=== PATIENT | female | born 1940 | race Caucasian/White ===

== ENCOUNTER 2023-01-28 07:30 | Inpatient (IN) | payer OTHER ==
[2023-01-22 10:47] LABS: BILIRUBIN,URINE NEGATIVE (Neg); CLARITY,URINE CLOUDY (Clear); COLOR,URINE YELLOW (Yellow); GLUCOSE, URINE NEGATIVE (Neg); KETONES,URINE NEGATIVE (Neg); LEUKOCYTE ESTERASE ,URINE LARGE (Neg); NITRITES, URINE POSITIVE (Neg); OCCULT BLOOD,URINE MODERATE (Neg); PROTEIN,URINE 30 mg/dl (Neg); UROBILINOGEN,URINE 0.2 E.U/dL (0.2-1.0)
[2023-01-22 10:48] LABS: UA COLLECTION TYPE NON-SPECIFIED
[2023-01-22 10:49] LABS: EOSINOPHILS # (AUTO) 0.1 X10'3 (0-0.9); PRE OP HEMOGLOBIN 11.4 g/dL (12.0-16.0)
[2023-01-22 10:51] LABS: BASOPHILS # (AUTO) 0.1 X10'3 (0-0.2); EOSINOPHILS % (AUTO) 2.1 % (0-6); LYMPHOCYTES # (AUTO) 1.1 X10'3 (1.1-4.8); MEAN CORPUSCULAR HGB CONC 32.3 g/dL (33.0-36.5); MEAN CORPUSCULAR VOLUME 95.8 FL (78-98); MEAN PLATELET VOLUME 10.3 FL (7.4-10.4); MONOCYTES # (AUTO) 0.6 X10'3 (0-0.9); MONOCYTES % (AUTO) 8.8 % (2-12); NEUTROPHILS # (AUTO) 4.4 X10'3 (1.8-7.7); NEUTROPHILS % (AUTO) 70.1 % (42-75); PRE OP HEMATOCRIT 35.3 % (35.0-45.0); PRE OP PLATELET COUNT 174 X10'3 (140-440); PRE OP WHITE BLOOD COUNT 6.3 10'3 (4.8-10.8); RED BLOOD COUNT 3.68 X10'6 (4.20-5.60); RED CELL DISTRIBUTION WIDTH 15.4 % (11.5-14.5)
[2023-01-22 10:53] LABS: BACTERIA,URINE 4+ /HPF (Neg); MUCUS STRANDS NONE SEEN /LPF (Neg); SQUAMOUS EPITHELIAL CELL,UR NONE SEEN /LPF (FEW); TRANSITIONAL EPI CELLS,URINE FEW /HPF; WBC CLUMPS,URINE MODERATE /HPF (NEGATIVE); WBC,URINE TNTC /HPF (0-4)
[2023-01-22 11:17] LABS: ALBUMIN 3.2 G/DL (3.4-5.0); ALBUMIN/GLOBULIN RATIO 0.8 (1.1-1.5); ALKALINE PHOSPHATASE 136 IU/L (46-116); BLOOD UREA NITROGEN 39 MG/DL (7-18); BUN/CREATININE RATIO 27.9 (10.0-20.0); CALCIUM 9.8 MG/DL (8.5-10.1); CHLORIDE 111 MMOL/L (99-107); PRE OP ALT 15 U/L (30-65); PRE OP ANION GAP 12 (8-16); PRE OP AST 13 U/L (10-37); PRE OP BILIRUB, TOTAL 0.5 MG/DL (0.0-1.0); PRE OP GLUCOSE 191 MG/DL (70-104); PRE OP POTASSIUM 3.7 MMOL/L (3.4-5.1); PRE OP SODIUM 144 MMOL/L (135-145); THYROID STIMULATING HORMONE 6.28 ulU/ml (0.34-4.50); TOTAL CARBON DIOXIDE 21.3 MMOL/L (24-32); eGFR 36 ML/MIN
[2023-01-22 11:48] LABS: PRE OP INR 1.2 INR; PRE OP PROTIME 12.6 SECONDS (9.0-12.0)
[~2023-01-28] VITALS: Ht 175.3 cm; Wt 82.6 kg
[~2023-01-28 07:30] MED LIST: APIX5TAB3 PO; FURO-150 PO; GEMF600T90 CORPAK; HYDR-3965 PO; INSU100I57; IPRA3AMP31 NEB; LEVO125T8 PO; LIDO700A47 TOP; LISI40TA13 PO; METO-395 PO; ONDA4TAB12 PO
[2023-02-04] VITALS (29 sets, daily range): BP systolic 99–136; BP diastolic 44–64; PULSE 45–77; RESP 10–22; TEMP 96.8–98.1; O2SAT 95–100
[2023-02-04] MEDS ORDERED: ringers solution, lacted 1,000 ML IV SCH ×2 (05:00→13:00)
[2023-02-04] MEDS ORDERED: famotidine 20mg tablet PO ONE (05:30)
[2023-02-04] MEDS ORDERED: albuterol 2.5 MG/3 ML nebule NEB ONE (05:30)
[2023-02-04] MEDS ORDERED: ondansetron/PF 4mg/2ml inj IV PRN ×3 (05:30→15:15)
[2023-02-04] MEDS ORDERED: vancomycin 1,500 MG in NS 300ml IV soln IV ONE (05:30)
[2023-02-04] MEDS ORDERED: cefazolin 2gm/D5W 100mL 100 ML IV ONE (05:30)
[2023-02-04] MEDS ORDERED: DOCUMENT DATE & TIME OF BETA-BLOCKER PO ONE (05:30)
[2023-02-04] MEDS ORDERED: protamine sulfate 10mg/ml inj. ONE (08:50)
[2023-02-04] MEDS ORDERED: labetalol 20mg/4ml (5mg/ml) syringe IV PRN ×2 (13:00→15:15)
[2023-02-04] MEDS ORDERED: hydrALAZINE 20mg/ml inj. IV PRN ×2 (13:00→15:15)
[2023-02-04] MEDS ORDERED: morphine 4 MG/ML inj SYRINge IV PRN (13:00)
[2023-02-04] MEDS ORDERED: morphine 2 MG/ML inj. syringe IV PRN (13:00)
[2023-02-04] MEDS ORDERED: LIDOcaine 1% (10mg/ml) 2ml vial ONE (13:36)
[2023-02-04] MEDS ORDERED: iohexol 350 MG/ML 50ML vial IV ONE ×2 (14:05→15:04)
[2023-02-04] MEDS ORDERED: dexamethasone sod phosphate 10mg/ml inj ONE (14:15)
[2023-02-04] MEDS ORDERED: glycopyrrolate 0.2mg/ml inj ONE (14:15)
[2023-02-04] MEDS ORDERED: ondansetron 4mg rapidly disintigrating tab PO PRN (14:15)
[2023-02-04] MEDS ORDERED: LIDOcaine 5% patch TP PRN (14:15)
[2023-02-04] MEDS ORDERED: desflurane 240ml liquid inh. IH ONE (14:15)
[2023-02-04] MEDS ORDERED: neostigmine methylsulfate 1 MG/ML 10ml vial ONE (14:15)
[2023-02-04] MEDS ORDERED: midazolam 1 mg/ML 2ml injection ONE (14:22)
[2023-02-04] MEDS ORDERED: meperidine/PF 50mg/ml syringe ONE (14:22)
[2023-02-04] MEDS ORDERED: LIDOcaine 1%/PF 5ML 10 MG/ML VIAL ONE (14:29)
[2023-02-04] MEDS ORDERED: propofol inj 20 ML IV ONE (14:29)
[2023-02-04] MEDS ORDERED: ondansetron/PF 4mg/2ml inj ONE (14:30)
[2023-02-04] MEDS ORDERED: rocuronium 10mg/ml inj IV ONE (14:30)
[2023-02-04] MEDS ORDERED: heparin 1,000unit/ml 10ml vial 10 ML ONE (14:40)
[2023-02-04] MEDS ORDERED: ePHEDrine 50MG/ML INJ. ONE ×2 (14:46)
[2023-02-04] MEDS ORDERED: DEXTROSE 15 GM of carb/4 tabs (each vial/BOTTLE has 4 tablets) PO PRN ×2 (15:15)
[2023-02-04] MEDS ORDERED: magnesium 4gm in 100ml NS 100 ML IV PRN (15:15)
[2023-02-04] MEDS ORDERED: docusate sod 100mg capsule PO PRN (15:15)
[2023-02-04] MEDS ORDERED: potassium CL 10mEq/100ml bag 100 ML IV PRN (15:15)
[2023-02-04] MEDS ORDERED: pantoprazole 40mg Tablet.DR PO PRN (15:15)
[2023-02-04] MEDS ORDERED: MESSAGE TO PHARMACY PO ONE (15:15)
[2023-02-04] MEDS ORDERED: potassium Cl 40MEQ/1/2NS 520ml 520 ML IV PRN (15:15)
[2023-02-04] MEDS ORDERED: magnesium 2GM in 50ml NS 50 ML IV PRN (15:15)
[2023-02-04] MEDS ORDERED: acetaminophen 325mg tablet PO PRN (15:15)
[2023-02-04] MEDS ORDERED: potassium Cl 40MEQ/270ML bag 250 ML IV PRN (15:15)
[2023-02-04] MEDS ORDERED: potassium Cl 20 mEq SR tablet PO PRN (15:15)
[2023-02-04] MEDS ORDERED: proCHLORperazine 10 MG/2 ml inj IV PRN (15:15)
[2023-02-04] MEDS: normal saline 1000ml 1,000 ML IV SCH (15:15)
[2023-02-04] MEDS ORDERED: glucagon, human recombinant 1mg kit SUBCUT PRN (15:15)
[2023-02-04] MEDS ORDERED: ALPRAZolam 0.25mg tablet PO PRN (15:15)
[2023-02-04] MEDS ORDERED: diphenhydrAMINE 25mg capsule PO PRN (15:15)
[2023-02-04] MEDS ORDERED: dextrose 50%-water 50ml dispensing syringe IV PRN ×2 (15:15)
[2023-02-04] MEDS ORDERED: insulin regular, human U-100 3ml vial - multi-dose SQ SCH (15:15)
[2023-02-04] MEDS ORDERED: potassium Cl 20mEq/100mL bag 100 ML IV PRN (15:15)
--- NOTE | 2023-02-04 15:23 | NUR ---
Received from OR via HOSPITAL BED, accompanied by Anesthesiologist ELVIA and report given by Anesthesiologist. PT PRESENTS ON 6L MASK, VSS. LR RUNNING THRU PIV AND ART LINE ZEROED. RIGHT GROIN DRESSING CDI. PTS IS A/OX4 AND NEUROLOGICALLY INTACT. PUSH PULLS EQUAL. DOPPLER TO BILATERAL PEDAL PULSES. STRONG. NO C/O PAIN/NAUSEA. NO S/S OF DISTRESS.
--- NOTE | 2023-02-04 16:40 | NUR ---
PULLED COCKSTOP IN RIGHT GROIN PER ORDERS. MANUAL PRESSURE HELD D/T BLEEDING.
--- NOTE | 2023-02-04 16:50 | NUR ---
CALL TO DR HAAS: ORDER TO PLACE FEMSTOP: ELECTRIC SCREW DRIVER OPERATOR IN ROOM: PLACED FEMSTOP. PT TOLERATED WELL.
--- NOTE | 2023-02-04 17:15 | NUR ---
NO S/S OF ADDITIONAL BLEEDING WITH FEMSTOP IN PLACE. NO C/O PAIN/NAUSEA. NO S/S OF DISTRESS
--- NOTE | 2023-02-04 18:03 | NUR ---
ART D/C'D PER PROTOCOL. PRESSURE HELD FOR 15 MINUTES. GAUZE AND COBAN APPLIED. NO S/S OF BLEEDING.
--- NOTE | 2023-02-04 19:23 | NUR ---
PT STABLE FOR TRANSFER PER MD ORDERS. NO ADDITIONAL SIGNS OF BLEEDING. FEMSTOP IN PLACE. PT HAS BEEN REPOSITIONED FOR COMFORT. NS RUNNING THRU PIV. COBAN IN PLACE OF D/C'D ART LINE. REPORT GIVEN TO NURSE ROBERT ON TELE FLOOR. ALL QUESTIONS, COMMENTS, AND CONCERNS WERE ANSWERED AT THIS TIME. PATIENT WAS TRANSPORTED ON HOSPITAL BED TO TELE ROOM 3020. ALL PERSONAL BELONGINGS WERE SENT WITH PATIENT. CALL LIGHT WITHIN REACH, BLL, PRIMARY NURSE AWARE OF TRANSFER.
[2023-02-04] MEDS: sod chloride 0.9% 10ml flush syringe IV SCH (19:48)
[2023-02-04] MEDS: gemfibrozil 600mg tablet CORPAK SCH (20:00)
[2023-02-04] MEDS: apixaban 5mg tablet PO SCH (20:00)
[2023-02-04] MEDS: insulin glargine (Lantus) pen - multi-dose SQ SCH (21:00)
[2023-02-04] MEDS: metoprolol succinate 25mg (24-HOUR) SR. Tablet PO SCH (21:00)
[2023-02-05] VITALS (11 sets, daily range): BP systolic 84–97; BP diastolic 31–57; PULSE 45–49; RESP 12–20; TEMP 97–98.1; O2SAT 92–98
[2023-02-05] MEDS: sod chloride 0.9% 10ml flush syringe IV SCH ×3 (00:25→16:00)
[2023-02-05] MEDS: normal saline 1000ml 1,000 ML IV SCH ×2 (02:48→15:48)
[2023-02-05] MEDS: HYDROcodone/acetaminophen 5mg/325mg tablet PO PRN ×2 (05:47→16:48)
--- NOTE | 2023-02-05 06:10 | NUR ---
Problems reprioritized. Patient report given, questions answered & plan of care reviewed with GRETTA Guzman.
--- NOTE | 2023-02-05 06:46 | NUR ---
Patient in room PCU 3020. I have received report from Tamela GLYNN and had the opportunity to ask questions and assume patient care.
[2023-02-05 07:51] LABS: BASOPHILS % (AUTO) 0.1 % (0-1); EOSINOPHILS % (AUTO) 0 % (0-6); HEMATOCRIT 34.7 % (35.0-45.0); HEMOGLOBIN 10.8 g/dl (12.0-16.0); INR 1.1 INR; LYMPHOCYTES # (AUTO) 0.8 X10'3 (1.1-4.8); LYMPHOCYTES % (AUTO) 6.7 % (21-51); MEAN CORPUSCULAR HEMOGLOBIN 30.5 PG (27.0-31.0); MEAN CORPUSCULAR HGB CONC 31.3 g/dL (33.0-36.5); MEAN CORPUSCULAR VOLUME 97.3 FL (78-98); MEAN PLATELET VOLUME 10.7 FL (7.4-10.4); MONOCYTES # (AUTO) 0.9 X10'3 (0-0.9); MONOCYTES % (AUTO) 6.8 % (2-12); NEUTROPHILS # (AUTO) 10.9 X10'3 (1.8-7.7); NEUTROPHILS % (AUTO) 86.4 % (42-75); PLATELET COUNT 192 X10'3 (140-440); PROTHROMBIN TIME 11.4 SECONDS (9.0-12.0); RED BLOOD COUNT 3.56 X10'6 (4.20-5.60); RED CELL DISTRIBUTION WIDTH 15.6 % (11.5-14.5); WHITE BLOOD COUNT 12.6 X10'3 (4.5-11.0)
[2023-02-05] MEDS: lisinopril 20mg tablet PO SCH (08:00)
[2023-02-05] MEDS ORDERED: apixaban 5mg tablet PO SCH (08:00)
[2023-02-05 08:15] LABS: ALANINE AMINOTRANSFERASE 14 U/L (12-78); ALBUMIN 2.9 G/DL (3.4-5.0); ALBUMIN/GLOBULIN RATIO 0.8 (1.1-1.5); ALKALINE PHOSPHATASE 112 IU/L (46-116); ANION GAP 13 (8-16); ASPARTATE AMINO TRANSFERASE 13 U/L (10-37); BILIRUBIN,TOTAL 0.2 MG/DL (0.1-1.0); BLOOD UREA NITROGEN 68 MG/DL (7-18); CALCIUM 8.9 MG/DL (8.5-10.1); CHLORIDE 108 MMOL/L (99-107); GLUCOSE 234 MG/DL (70-104); POTASSIUM 5.6 MMOL/L (3.5-5.1); PRO BRAIN NATRIURETIC PEPTIDE 1936 PG/ML (0-450); SODIUM 136 MMOL/L (135-145); TOTAL CARBON DIOXIDE 15.5 MMOL/L (24-32); TOTAL PROTEIN 6.4 G/DL (6.4-8.2); eCRCL 23 ML/MIN; eGFR 24 ML/MIN
[2023-02-05] MEDS: apixaban 5mg tablet PO SCH (08:31)
[2023-02-05] MEDS: furosemide 20MG tablet PO SCH (08:33)
[2023-02-05] MEDS: levoTHYROXINE 125mcg tablet PO SCH (08:33)
[2023-02-05] MEDS: metoprolol succinate 25mg (24-HOUR) SR. Tablet PO SCH ×2 (08:33→21:00)
[2023-02-05] MEDS: gemfibrozil 600mg tablet CORPAK SCH ×2 (08:35→19:50)
[2023-02-05 08:57] LABS: HEMOGLOBIN A1C 7.4 % (4.5-6.2)
--- NOTE | 2023-02-05 11:30 | NUR ---
Pt has a low BP of 83/39 with automatic cuff, i rechecked with manual and got a reading of 85/40. Dr Martin Farooq has been notified and she is receiving a 1L bolus of fluids now.
--- NOTE | 2023-02-05 15:30 | NUR ---
DISCHARGE CANCELLED FOR TODAY PER DR. NICOLE. PATIENT WILL BE GETTING ANOTHER ECHOCARDIOGRAM FOR TOMORROW.
--- NOTE | 2023-02-05 15:43 | NUR ---
ORDER TO STOP ELIQUIS PUT IN PER DR. NICOLE.
--- NOTE | 2023-02-05 18:49 | NUR ---
Problems reprioritized. Patient report given, questions answered & plan of care reviewed with Yash GLYNN.
[2023-02-05] MEDS: insulin Lispro (HumaLOG) vial - multi-dose SQ SCH (19:26)
[2023-02-05] MEDS: insulin glargine (Lantus) pen - multi-dose SQ SCH (21:47)
[2023-02-06] VITALS (9 sets, daily range): BP systolic 76–105; BP diastolic 40–59; PULSE 43–54; RESP 15–24; TEMP 96.9–97.8; O2SAT 90–98
[2023-02-06] MEDS: normal saline 1000ml 1,000 ML IV SCH ×2 (02:12→11:42)
--- NOTE | 2023-02-06 06:21 | NUR ---
Patient report given to Blu GLYNN questions answered & plan of care reviewed with .
--- NOTE | 2023-02-06 06:29 | NUR ---
Patient in room PCU 3020. I have received report from Yash HERNANDEZ and had the opportunity to ask questions and assume patient care.
--- NOTE | 2023-02-06 07:30 | NUR ---
This RN agrees w/the EXCHANGE ADMINISTRATOR's physical assessment of this patinet.
[2023-02-06] MEDS: gemfibrozil 600mg tablet CORPAK SCH ×2 (07:50→19:24)
[2023-02-06] MEDS: levoTHYROXINE 125mcg tablet PO SCH (07:50)
[2023-02-06] MEDS: furosemide 20MG tablet PO SCH (08:00)
[2023-02-06] MEDS: lisinopril 20mg tablet PO SCH (08:00)
[2023-02-06] MEDS: metoprolol succinate 25mg (24-HOUR) SR. Tablet PO SCH ×2 (08:00→21:00)
[2023-02-06] MEDS: sod chloride 0.9% 10ml flush syringe IV SCH ×3 (08:26→16:04)
--- NOTE | 2023-02-06 09:27 | NUR ---
Per EMR pt with T2DM, well controlled for geriatric age with A1c 7.4%. DM education not warranted at this time. Will continue to follow. Addendum: 02/06/23 at [address] Amended: Links added.
--- NOTE | 2023-02-06 09:43 | NUR ---
PERSONALIZED LIVING MANAGER REPORTED THAT THERE WERE ST CHANGES, WE DID A 12-LEAD EKG AND IT SHOWED ACUTE KS. GRETTA BULLARD, THE PRIMARY NURSE, TOOK THE 12 LEAD DOWN TO THE ED AND ONE OF THE ED PHYSICIANS SIGNED THE [address] NICOLE WAS CALLED AND TOLD THAT THERE WERE ST CHANGES THAT HAPPENED DURING THE NIGHT AND THAT WE PROCEEDED TO GET A 12 LEAD DONE TODAY THAT SHOWED ACUTE KS. HE STATED THAT HE WAS ON HIS WAY IN. Addendum: 02/06/23 at 1001 by Sridevi Flowers RN NO 12 LEAD EKG WAS DONE DURING GEOGRAPHIC INFORMATION SYSTEMS MANAGER TO SHOW THE CHANGES.
--- NOTE | 2023-02-06 10:28 | NUR ---
ORDERS FOR CBC, CMP AND TROPONIN PUT IN PER DR. NICOLE.
[2023-02-06] MEDS ORDERED: fentaNYL/PF 50MCG/1 ML 2ML syringe ONE (11:24)
[2023-02-06] MEDS ORDERED: midazolam 1 mg/ML 2ml injection ONE (11:24)
[2023-02-06] MEDS ORDERED: heparin 1,000unit/ml 10ml vial 10 ML ONE (11:24)
[2023-02-06] MEDS ORDERED: iohexol 350MG/ML 100ml bottle IV ONE (11:24)
[2023-02-06] MEDS ORDERED: LIDOcaine 1% (10mg/ml) 2ml vial ONE (11:46)
[2023-02-06] MEDS ORDERED: verapamil 2.5 mg/ml inj IV ONE (11:46)
[2023-02-06] MEDS ORDERED: aspirin 81mg tab.chew ONE ×2 (11:55→11:58)
[2023-02-06] MEDS ORDERED: clopidogrel 300mg tablet ONE (11:55)
[2023-02-06] MEDS ORDERED: nitroGLYCERIN 500mcg/5mL D5W 0 ML IV ONE (11:56)
[2023-02-06 14:08] LABS: BASOPHILS % (AUTO) 0.4 % (0-1); EOSINOPHILS # (AUTO) 0.1 X10'3 (0-0.9); EOSINOPHILS % (AUTO) 0.9 % (0-6); HEMATOCRIT 34.2 % (35.0-45.0); HEMOGLOBIN 10.9 g/dl (12.0-16.0); LYMPHOCYTES % (AUTO) 9.6 % (21-51); MEAN CORPUSCULAR HEMOGLOBIN 31.5 PG (27.0-31.0); MEAN CORPUSCULAR HGB CONC 31.8 g/dL (33.0-36.5); MEAN CORPUSCULAR VOLUME 98.9 FL (78-98); MONOCYTES # (AUTO) 0.2 X10'3 (0-0.9); MONOCYTES % (AUTO) 2.4 % (2-12); NEUTROPHILS # (AUTO) 8.9 X10'3 (1.8-7.7); NEUTROPHILS % (AUTO) 86.7 % (42-75); PLATELET COUNT 162 X10'3 (140-440); RED BLOOD COUNT 3.45 X10'6 (4.20-5.60); WHITE BLOOD COUNT 10.3 X10'3 (4.5-11.0)
[2023-02-06 14:17] LABS: ALANINE AMINOTRANSFERASE 10 U/L (12-78); ALBUMIN 2.8 G/DL (3.4-5.0); ALBUMIN/GLOBULIN RATIO 0.8 (1.1-1.5); ALKALINE PHOSPHATASE 99 IU/L (46-116); ANION GAP 10 (8-16); ASPARTATE AMINO TRANSFERASE 17 U/L (10-37); BILIRUBIN,TOTAL 0.2 MG/DL (0.1-1.0); BLOOD UREA NITROGEN 83 MG/DL (7-18); BUN/CREATININE RATIO 26.3 (10.0-20.0); CALCIUM 8.7 MG/DL (8.5-10.1); CHLORIDE 107 MMOL/L (99-107); CREATININE 3.16 MG/DL (0.40-0.90); GLUCOSE 136 MG/DL (70-104); POTASSIUM 5.7 MMOL/L (3.5-5.1); SODIUM 133 MMOL/L (135-145); TOTAL CARBON DIOXIDE 15.9 MMOL/L (24-32); TOTAL PROTEIN 6.4 G/DL (6.4-8.2); eCRCL 15 ML/MIN; eGFR 14 ML/MIN
[2023-02-06] MEDS ORDERED: HYDROcodone/acetaminophen 5mg/325mg tablet PO PRN (14:20)
[2023-02-06] MEDS ORDERED: HYDROcodone/acetaminophen 10/325mg tab PO PRN (14:20)
--- NOTE | 2023-02-06 14:35 | NUR ---
Pt had a lab value of Trop - 106, Dr. Farooq called and notified.
--- NOTE | 2023-02-06 18:59 | NUR ---
Problems reprioritized. Patient report given, questions answered & plan of care reviewed with Kaitlynn GLYNN.
[2023-02-06] MEDS: insulin glargine (Lantus) pen - multi-dose SQ SCH (21:00)
--- NOTE | 2023-02-06 21:00 | NUR ---
pt was not treated today for blood sugars d/t being NPO or in procedure so will check 2100 blood sugar and have pt re-meet protocol. will continue to monitor.
[2023-02-07] VITALS (9 sets, daily range): BP systolic 88–155; BP diastolic 36–67; PULSE 50–60; RESP 9–26; TEMP 97.5–98.8; O2SAT 95–98
[2023-02-07] MEDS: sod chloride 0.9% 10ml flush syringe IV SCH ×3 (00:03→16:00)
--- NOTE | 2023-02-07 06:13 | NUR ---
Problems reprioritized. Patient report given, questions answered & plan of care reviewed with Blu GLYNN.
--- NOTE | 2023-02-07 06:44 | NUR ---
Patient in room PCU 3020. I have received report from Kaitlynn GLYNN and had the opportunity to ask questions and assume patient care.
[2023-02-07 07:04] LABS: ALBUMIN 2.5 G/DL (3.4-5.0); ANION GAP 17 (8-16); BLOOD UREA NITROGEN 97 MG/DL (7-18); BUN/CREATININE RATIO 26.1 (10.0-20.0); CALCIUM 8.7 MG/DL (8.5-10.1); CHLORIDE 106 MMOL/L (99-107); CREATININE 3.72 MG/DL (0.40-0.90); GLUCOSE 143 MG/DL (70-104); POTASSIUM 5.4 MMOL/L (3.5-5.1); SODIUM 133 MMOL/L (135-145); eCRCL 13 ML/MIN; eGFR 12 ML/MIN
[2023-02-07 07:07] LABS: TOTAL CARBON DIOXIDE 10.1 MMOL/L (24-32)
[2023-02-07] MEDS: clopidogrel 75mg tablet PO SCH (07:23)
[2023-02-07] MEDS: levoTHYROXINE 125mcg tablet PO SCH (07:23)
[2023-02-07] MEDS: furosemide 20MG tablet PO SCH (07:23)
[2023-02-07] MEDS: aspirin 81mg, enteric-coated 1 TAB TABLET.DR PO SCH (07:23)
[2023-02-07] MEDS: gemfibrozil 600mg tablet CORPAK SCH (07:23)
[2023-02-07] MEDS: metoprolol succinate 25mg (24-HOUR) SR. Tablet PO SCH (07:24)
[2023-02-07] MEDS: lisinopril 20mg tablet PO SCH (07:24)
[2023-02-07 07:31] LABS: BASOPHILS % (AUTO) 0.4 % (0-1); EOSINOPHILS % (AUTO) 0.4 % (0-6); HEMATOCRIT 30.1 % (35.0-45.0); HEMOGLOBIN 9.8 g/dl (12.0-16.0); LYMPHOCYTES # (AUTO) 1.1 X10'3 (1.1-4.8); LYMPHOCYTES % (AUTO) 10.7 % (21-51); MEAN CORPUSCULAR HEMOGLOBIN 31.6 PG (27.0-31.0); MEAN CORPUSCULAR HGB CONC 32.6 g/dL (33.0-36.5); MEAN CORPUSCULAR VOLUME 96.8 FL (78-98); MEAN PLATELET VOLUME 10.9 FL (7.4-10.4); MONOCYTES # (AUTO) 1.2 X10'3 (0-0.9); MONOCYTES % (AUTO) 11.5 % (2-12); NEUTROPHILS # (AUTO) 8.2 X10'3 (1.8-7.7); PLATELET COUNT 161 X10'3 (140-440); RED BLOOD COUNT 3.11 X10'6 (4.20-5.60); RED CELL DISTRIBUTION WIDTH 15.7 % (11.5-14.5); WHITE BLOOD COUNT 10.7 X10'3 (4.5-11.0)
--- NOTE | 2023-02-07 07:39 | NUR ---
Pt had critical lab value CO2 - 10.1. Dr Farooq called and notified.
[2023-02-07 09:10] LABS: ABG BASE EXCESS -15.1 mmol/L (-2.0-2.0); ABG HCO3 10.5 mmol/L (22.0-26.0); ABG OXYGEN SATURATION 95.8 % (94-97); ABG PCO2 (T) 24.1 mmHg (32.0-45.0); ABG PH (T) 7.255 (7.350-7.450); ABG PO2 (T) 81.9 mmHg (75.0-100.0); ALLEN'S TEST Yes; FCOHb 0.3 % (0.0-3.9); FHHb 4.2 % (0.0-5.0); FMetHb 0.3 % (0.0-1.5); FO2Hb 95.2 % (94-97); MODE ROOM AIR; PATIENT TEMPERATURE 36.6; TOTAL HEMOGLOBIN 10.1 G/dl (12.0-16.0)
[2023-02-07] MEDS: sodium bicarbonate (8.4%) inj. 150 MEQ in dextrose 5%-water 1,000 ML IV SCH (11:25)
[2023-02-07 12:32] LABS: TOTAL PROTEIN,URINE RANDOM 55.8 MG/DL
[2023-02-07 12:33] LABS: BILIRUBIN,URINE NEGATIVE (Neg); CLARITY,URINE SLIGHTLY CLOUDY (Clear); COLOR,URINE YELLOW (Yellow); GLUCOSE, URINE NEGATIVE (Neg); KETONES,URINE NEGATIVE (Neg); LEUKOCYTE ESTERASE ,URINE NEGATIVE (Neg); NITRITES, URINE NEGATIVE (Neg); OCCULT BLOOD,URINE SMALL (Neg); PH,URINE 5.5 (4.8-8.0); PROTEIN,URINE TRACE mg/dl (Neg); UROBILINOGEN,URINE 0.2 E.U/dL (0.2-1.0)
[2023-02-07 12:54] LABS: UA COLLECTION TYPE CLN CATCH MIDSTREAM
[2023-02-07 12:58] LABS: MUCUS STRANDS FEW /LPF (Neg); SQUAMOUS EPITHELIAL CELL,UR FEW /LPF (FEW)
[2023-02-07 12:59] LABS: BACTERIA,URINE FEW /HPF (Neg); RBC,URINE 0-2 /HPF (0-2); TRANSITIONAL EPI CELLS,URINE FEW /HPF; WBC,URINE 0-4 /HPF (0-4)
[2023-02-07 13:40] LABS: UA EOSINOPHILS NO EOS /HPF
--- NOTE | 2023-02-07 18:27 | NUR ---
Problems reprioritized. Patient report given, questions answered & plan of care reviewed with Rhiannon GLYNN.
[2023-02-07] MEDS: insulin Lispro (HumaLOG) vial - multi-dose SQ SCH (21:30)
[2023-02-07] MEDS: insulin glargine (Lantus) pen - multi-dose SQ SCH (21:32)
[2023-02-08] VITALS (12 sets, daily range): BP systolic 130–148; BP diastolic 55–70; PULSE 54–121; RESP 16–27; TEMP 97.6–99; O2SAT 94–98
[2023-02-08] MEDS: sodium bicarbonate (8.4%) inj. 150 MEQ in dextrose 5%-water 1,000 ML IV SCH ×2 (01:12→10:25)
[2023-02-08] MEDS: sod chloride 0.9% 10ml flush syringe IV SCH ×3 (01:13→16:00)
[2023-02-08 01:59] LABS: BASOPHILS % (AUTO) 0.3 % (0-1); EOSINOPHILS # (AUTO) 0.1 X10'3 (0-0.9); EOSINOPHILS % (AUTO) 0.8 % (0-6); HEMATOCRIT 26.5 % (35.0-45.0); HEMOGLOBIN 8.8 g/dl (12.0-16.0); LYMPHOCYTES % (AUTO) 11.8 % (21-51); MEAN CORPUSCULAR HEMOGLOBIN 31.6 PG (27.0-31.0); MEAN CORPUSCULAR HGB CONC 33.2 g/dL (33.0-36.5); MEAN CORPUSCULAR VOLUME 95.4 FL (78-98); MEAN PLATELET VOLUME 10.5 FL (7.4-10.4); MONOCYTES # (AUTO) 0.9 X10'3 (0-0.9); MONOCYTES % (AUTO) 11.2 % (2-12); NEUTROPHILS # (AUTO) 6.4 X10'3 (1.8-7.7); NEUTROPHILS % (AUTO) 75.9 % (42-75); PLATELET COUNT 162 X10'3 (140-440); RED BLOOD COUNT 2.78 X10'6 (4.20-5.60); RED CELL DISTRIBUTION WIDTH 15.3 % (11.5-14.5); WHITE BLOOD COUNT 8.4 X10'3 (4.5-11.0)
[2023-02-08 02:03] LABS: ALANINE AMINOTRANSFERASE 8 U/L (12-78); ALBUMIN 2.4 G/DL (3.4-5.0); ALBUMIN/GLOBULIN RATIO 0.6 (1.1-1.5); ALKALINE PHOSPHATASE 87 IU/L (46-116); ANION GAP 12 (8-16); ASPARTATE AMINO TRANSFERASE 13 U/L (10-37); BILIRUBIN,TOTAL 0.2 MG/DL (0.1-1.0); BLOOD UREA NITROGEN 97 MG/DL (7-18); BUN/CREATININE RATIO 26.1 (10.0-20.0); CHLORIDE 107 MMOL/L (99-107); CREATININE 3.72 MG/DL (0.40-0.90); GLUCOSE 122 MG/DL (70-104); MAGNESIUM 1.8 MG/DL (1.5-2.4); PHOSPHORUS 6.1 MG/DL (2.3-4.5); POTASSIUM 5.2 MMOL/L (3.5-5.1); SODIUM 135 MMOL/L (135-145); TOTAL CARBON DIOXIDE 15.7 MMOL/L (24-32); TOTAL PROTEIN 6.2 G/DL (6.4-8.2); eCRCL 13 ML/MIN; eGFR 12 ML/MIN
--- NOTE | 2023-02-08 06:11 | NUR ---
Problems reprioritized. Patient report given, questions answered & plan of care reviewed with Bul GLYNN. Pt stable at shift change.
--- NOTE | 2023-02-08 06:22 | NUR ---
Patient in room PCU 3020. I have received report from Rhiannon GLYNN and had the opportunity to ask questions and assume patient care.
[2023-02-08] MEDS: clopidogrel 75mg tablet PO SCH (07:38)
[2023-02-08] MEDS: aspirin 81mg, enteric-coated 1 TAB TABLET.DR PO SCH (07:38)
[2023-02-08] MEDS: levoTHYROXINE 125mcg tablet PO SCH (07:39)
[2023-02-08] MEDS: atorvastatin 20mg tablet PO SCH (07:39)
[2023-02-08] MEDS ORDERED: metoprolol succinate 25mg (24-HOUR) SR. Tablet PO ONE (10:30)
[2023-02-08] MEDS ORDERED: ipratropium/albuterol 3ml nebule NEB PRN (12:30)
[2023-02-08] MEDS: ipratropium/albuterol 3ml nebule NEB SCH ×2 (14:35→20:18)
--- NOTE | 2023-02-08 17:27 | NUR ---
Pt refused 1500 vitals.
--- NOTE | 2023-02-08 18:45 | NUR ---
Patient in room PCU 3020. I have received report from Rhiannon GLYNN and had the opportunity to ask questions and assume patient care.
[2023-02-08] MEDS: insulin glargine (Lantus) pen - multi-dose SQ SCH (21:20)
[2023-02-08] MEDS: insulin Lispro (HumaLOG) vial - multi-dose SQ SCH (21:22)
[2023-02-09] VITALS (16 sets, daily range): BP systolic 117–133; BP diastolic 53–79; PULSE 76–109; RESP 14–21; TEMP 97.4–98; O2SAT 94–99
[2023-02-09] MEDS: ipratropium/albuterol 3ml nebule NEB SCH ×4 (02:01→19:38)
[2023-02-09] MEDS: sodium bicarbonate (8.4%) inj. 150 MEQ in dextrose 5%-water 1,000 ML IV SCH ×3 (04:03→19:52)
[2023-02-09] MEDS: levoTHYROXINE 125mcg tablet PO SCH (07:00)
[2023-02-09 07:11] LABS: BASOPHILS % (AUTO) 0.6 % (0-1); EOSINOPHILS # (AUTO) 0.1 X10'3 (0-0.9); EOSINOPHILS % (AUTO) 1.4 % (0-6); HEMATOCRIT 29.1 % (35.0-45.0); HEMOGLOBIN 9.4 g/dl (12.0-16.0); LYMPHOCYTES # (AUTO) 0.8 X10'3 (1.1-4.8); LYMPHOCYTES % (AUTO) 11.9 % (21-51); MEAN CORPUSCULAR HEMOGLOBIN 30.7 PG (27.0-31.0); MEAN CORPUSCULAR HGB CONC 32.4 g/dL (33.0-36.5); MEAN CORPUSCULAR VOLUME 94.7 FL (78-98); MEAN PLATELET VOLUME 10.3 FL (7.4-10.4); MONOCYTES # (AUTO) 0.8 X10'3 (0-0.9); MONOCYTES % (AUTO) 11.2 % (2-12); NEUTROPHILS # (AUTO) 5.1 X10'3 (1.8-7.7); NEUTROPHILS % (AUTO) 74.9 % (42-75); PLATELET COUNT 182 X10'3 (140-440); RED BLOOD COUNT 3.08 X10'6 (4.20-5.60); RED CELL DISTRIBUTION WIDTH 15.4 % (11.5-14.5); WHITE BLOOD COUNT 6.9 X10'3 (4.5-11.0)
[2023-02-09 07:33] LABS: ALANINE AMINOTRANSFERASE 6 U/L (12-78); ALBUMIN 2.2 G/DL (3.4-5.0); ALBUMIN/GLOBULIN RATIO 0.6 (1.1-1.5); ALKALINE PHOSPHATASE 76 IU/L (46-116); ANION GAP 14 (8-16); ASPARTATE AMINO TRANSFERASE 10 U/L (10-37); BILIRUBIN,TOTAL 0.2 MG/DL (0.1-1.0); BLOOD UREA NITROGEN 79 MG/DL (7-18); BUN/CREATININE RATIO 26.9 (10.0-20.0); CALCIUM 8.8 MG/DL (8.5-10.1); CHLORIDE 107 MMOL/L (99-107); CREATININE 2.94 MG/DL (0.40-0.90); GLUCOSE 257 MG/DL (70-104); MAGNESIUM 1.7 MG/DL (1.5-2.4); PHOSPHORUS 4.4 MG/DL (2.3-4.5); POTASSIUM 4.3 MMOL/L (3.5-5.1); SODIUM 142 MMOL/L (135-145); TOTAL CARBON DIOXIDE 21.4 MMOL/L (24-32); TOTAL PROTEIN 5.8 G/DL (6.4-8.2); eCRCL 16 ML/MIN; eGFR 15 ML/MIN
[2023-02-09] MEDS: sod chloride 0.9% 10ml flush syringe IV SCH ×4 (08:00→23:26)
[2023-02-09] MEDS ORDERED: metoprolol succinate 25mg (24-HOUR) SR. Tablet PO SCH (08:00)
[2023-02-09] MEDS: clopidogrel 75mg tablet PO SCH (09:11)
[2023-02-09] MEDS: atorvastatin 20mg tablet PO SCH (09:11)
[2023-02-09] MEDS: aspirin 81mg, enteric-coated 1 TAB TABLET.DR PO SCH (09:11)
[2023-02-09] MEDS: insulin Lispro (HumaLOG) vial - multi-dose SQ SCH ×2 (09:16→14:42)
--- NOTE | 2023-02-09 13:40 | NUR ---
PATIENT IS A DIABETIC AND HAS NOT BEEN GETTING A DIABETIC DIET. BLOOD SUGARS HAVE BEEN ABOVE 250. NEW DIET ORDER PLACED.
--- NOTE | 2023-02-09 16:11 | NUR ---
AGREE WITH FIRE PROTECTION EQUIPMENT TECHNICIAN AM ASSESSMENT
--- NOTE | 2023-02-09 16:18 | NUR ---
Initial: Pt admit DX NIK on CKD, CAD s/p cardiac cath 02/06, hyperkalemia, afib, metabolic acidosis, and T2DM A1C 7.4% per EMR. A1C appropriate per age. Pt PO ~51% avg renal/carb controlled meals past 4 days partially meeting estimated needs. PO has improved to ~91% past 4 meals and if continues would meet needs. Noted receiving Na-bicarb/D5W at 100ml/hr providing 408 kcals/day. Pt seen by RD at bedside; pt reports dislikes hospital food though won't provide specific preferences and is forcing herself to eat. Pt reports had Tea Bar salmon bowl brought from outside; RD verified leftovers saved for pt in nourishment room fridge half of bowl and most of protein eaten. RD encouraged pt PO intake meals, foods from outside if that's her preference, and to make food preferences known to meet nutrition needs. Pt does request vanilla ice cream WS tonight-dietary notified. Per GRAPE PRUNER, likely discharge tomorrow so ONS not appropriate as pt most likely won't received prior to discharge. LBM 02/08 per EMR. Will monitor for further PO trends and nutrition intervention needs. Rec: 1. continue carb controlled/renal diet; liberalize to regular diet if recent PO trends don't persist given age 2. honor pt food preferences as able; foods from outside if pt preference 3. routine bowel care 4. weekly wt Addendum: 02/09/23 at [address] Amended: Links added.
--- NOTE | 2023-02-09 16:54 | NUR ---
PATIENT REFUSED BLOOD SUGAR CHECK FOR DINNER.
--- NOTE | 2023-02-09 18:15 | NUR ---
Patient in room PCU 3020. I have received report from Verona HERNANDEZ and had the opportunity to ask questions and assume patient care.
[2023-02-09] MEDS: insulin glargine (Lantus) pen - multi-dose SQ SCH (21:09)
[2023-02-10] VITALS (9 sets, daily range): BP systolic 115–141; BP diastolic 57–78; PULSE 85–106; RESP 16–20; TEMP 97.3–97.6; O2SAT 94–98
[2023-02-10] MEDS: ipratropium/albuterol 3ml nebule NEB SCH ×3 (02:34→13:46)
--- NOTE | 2023-02-10 06:37 | NUR ---
Problems reprioritized. Patient report given, questions answered & plan of care reviewed with Yovanny HERNANDEZ.
--- NOTE | 2023-02-10 06:43 | NUR ---
Patient in room PCU 3020. I have received report from Melquiades RN & Umm RN and had the opportunity to ask questions and assume patient care.
[2023-02-10 07:28] LABS: BASOPHILS # (AUTO) 0.1 X10'3 (0-0.2); EOSINOPHILS # (AUTO) 0.2 X10'3 (0-0.9); EOSINOPHILS % (AUTO) 2.6 % (0-6); HEMOGLOBIN 9.2 g/dl (12.0-16.0); LYMPHOCYTES % (AUTO) 16.9 % (21-51); MEAN CORPUSCULAR HEMOGLOBIN 31.3 PG (27.0-31.0); MEAN PLATELET VOLUME 9.8 FL (7.4-10.4); MONOCYTES # (AUTO) 0.7 X10'3 (0-0.9); MONOCYTES % (AUTO) 11.4 % (2-12); NEUTROPHILS # (AUTO) 4.2 X10'3 (1.8-7.7); NEUTROPHILS % (AUTO) 68.1 % (42-75); PLATELET COUNT 203 X10'3 (140-440); RED BLOOD COUNT 2.95 X10'6 (4.20-5.60); RED CELL DISTRIBUTION WIDTH 15.3 % (11.5-14.5); WHITE BLOOD COUNT 6.2 X10'3 (4.5-11.0)
[2023-02-10] MEDS: aspirin 81mg, enteric-coated 1 TAB TABLET.DR PO SCH (07:45)
[2023-02-10] MEDS: clopidogrel 75mg tablet PO SCH (07:46)
[2023-02-10] MEDS: atorvastatin 20mg tablet PO SCH (07:46)
[2023-02-10] MEDS: levoTHYROXINE 125mcg tablet PO SCH (07:49)
[2023-02-10] MEDS: sod chloride 0.9% 10ml flush syringe IV SCH (07:55)
[2023-02-10 07:59] LABS: ALBUMIN 2.3 G/DL (3.4-5.0); ALBUMIN/GLOBULIN RATIO 0.6 (1.1-1.5); ALKALINE PHOSPHATASE 74 IU/L (46-116); ANION GAP 9 (8-16); ASPARTATE AMINO TRANSFERASE 20 U/L (10-37); BILIRUBIN,TOTAL 0.2 MG/DL (0.1-1.0); BLOOD UREA NITROGEN 73 MG/DL (7-18); BUN/CREATININE RATIO 27.8 (10.0-20.0); CALCIUM 8.7 MG/DL (8.5-10.1); CHLORIDE 106 MMOL/L (99-107); CREATININE 2.63 MG/DL (0.40-0.90); GLUCOSE 221 MG/DL (70-104); MAGNESIUM 1.7 MG/DL (1.5-2.4); SODIUM 142 MMOL/L (135-145); TOTAL CARBON DIOXIDE 26.7 MMOL/L (24-32); TOTAL PROTEIN 6.1 G/DL (6.4-8.2); eCRCL 18 ML/MIN; eGFR 17 ML/MIN
[2023-02-10] MEDS ORDERED: metoprolol succinate 25mg (24-HOUR) SR. Tablet PO SCH (08:00)
[2023-02-10] MEDS ORDERED: normal saline 1000ml 1,000 ML IV SCH (08:05)
[2023-02-10 08:06] LABS: ALANINE AMINOTRANSFERASE 6 U/L (12-78)
[2023-02-10] MEDS: insulin Lispro (HumaLOG) vial - multi-dose SQ SCH ×2 (09:22→14:07)
--- NOTE | 2023-02-10 15:32 | NUR ---
Patient stable for transfer. IV discontinued prior to d/c. Attempted to contact [facility] to give report but there was no answer when calling the facility phone. Will attempt to call report later. [facility] and transported in [facility] to [facility]. D/C @ 8079.
== END 2023-02-10 15:30 | DRG 273 ==
LOC: EDSTATUS 09:00 → PAS IN 02-04 08:49 → PCU 3S 02-04 19:25
PROVIDERS: ADMIT Student in an Organized Health Care Education/Training Program; ATTEND Student in an Organized Health Care Education/Training Program
PROC: 03HY32Z Insertion of Monitoring Device into Upper Artery, Percutaneous Approach (ICD-10-PCS; 2023-02-04)
PROC: B24BZZ4 Ultrasonography of Heart with Aorta, Transesophageal (ICD-10-PCS; 2023-02-04)
PROC: 02L73DK Occlusion of Left Atrial Appendage with Intraluminal Device, Percutaneous Approach (ICD-10-PCS; principal; 2023-02-04 14:15)
PROC: 027034Z Dilation of Coronary Artery, One Artery with Drug-eluting Intraluminal Device, Percutaneous Approach (ICD-10-PCS; 2023-02-06)
PROC: 4A023N7 Measurement of Cardiac Sampling and Pressure, Left Heart, Percutaneous Approach (ICD-10-PCS; 2023-02-06)
PROC: B2111ZZ Fluoroscopy of Multiple Coronary Arteries using Low Osmolar Contrast (ICD-10-PCS; 2023-02-06)
DX: I48.0 Paroxysmal atrial fibrillation (principal); Z00.6 Encounter for examination for normal comparison and control in clinical research program; I21.4 Non-ST elevation (NSTEMI) myocardial infarction; N17.0 Acute kidney failure with tubular necrosis; I31.39 Other pericardial effusion (noninflammatory); E87.20 Acidosis, unspecified; N17.9 Acute kidney failure, unspecified; E03.9 Hypothyroidism, unspecified; I34.0 Nonrheumatic mitral (valve) insufficiency; E11.22 Type 2 diabetes mellitus with diabetic chronic kidney disease; E87.5 Hyperkalemia; I95.9 Hypotension, unspecified; E78.5 Hyperlipidemia, unspecified; I25.10 Atherosclerotic heart disease of native coronary artery without angina pectoris; N18.30 Chronic kidney disease, stage 3 unspecified; I12.9 Hypertensive chronic kidney disease with stage 1 through stage 4 chronic kidney disease, or unspecified chronic kidney disease; Z86.73 Personal history of transient ischemic attack (TIA), and cerebral infarction without residual deficits; Z88.6 Allergy status to analgesic agent
CPT/HCPCS: 33340; 93308; 93312; 93325; 93458; C9600; 36415; 36600; 71045; 71046; 76770; 76937; 80048; 80053; 81001; 82570; 82803; 82948; 83036; 83735; 83880; 84100; 84156; 84300; 84443; 84484; 85018; 85025; 85347; 85610; 85730; 86885; 86900; 86901; 86920; 87077; 87081; 87088; 87186; 87207; 93005; 94640; 94760; 97116; 97161; 97530; 99152; 99153; A4618; A6258; A6449; C1725; C1751; C1760; C1769; C1874; C1889; C1893; C1894; G0378; J0690; J1100; J1644; J1815; J2175; J2250; J2270; J2405; J2704; J2710; J2720; J3010; J3370; J3490; J7030; J7040; J7070; J7120; Q9967

== ENCOUNTER 2023-02-11 13:58 | Emergency (ER) | payer OTHER ==
[~2023-02-11] VITALS: Ht 175.3 cm; Wt 83.0 kg
[2023-02-11 14:03] VITALS: TEMP 97.6
[2023-02-11 15:08] LABS: BASOPHILS # (AUTO) 0.1 X10'3 (0-0.2); EOSINOPHILS # (AUTO) 0.2 X10'3 (0-0.9); EOSINOPHILS % (AUTO) 3.3 % (0-6); HEMATOCRIT 29.9 % (35.0-45.0); HEMOGLOBIN 9.5 g/dl (12.0-16.0); LYMPHOCYTES # (AUTO) 1.3 X10'3 (1.1-4.8); LYMPHOCYTES % (AUTO) 18.6 % (21-51); MEAN CORPUSCULAR HEMOGLOBIN 30.7 PG (27.0-31.0); MEAN CORPUSCULAR HGB CONC 31.8 g/dL (33.0-36.5); MEAN CORPUSCULAR VOLUME 96.7 FL (78-98); MEAN PLATELET VOLUME 9.5 FL (7.4-10.4); MONOCYTES # (AUTO) 0.7 X10'3 (0-0.9); MONOCYTES % (AUTO) 10.6 % (2-12); NEUTROPHILS # (AUTO) 4.6 X10'3 (1.8-7.7); NEUTROPHILS % (AUTO) 66.5 % (42-75); PLATELET COUNT 245 X10'3 (140-440); RED BLOOD COUNT 3.09 X10'6 (4.20-5.60); RED CELL DISTRIBUTION WIDTH 15.6 % (11.5-14.5); WHITE BLOOD COUNT 6.9 X10'3 (4.5-11.0)
[2023-02-11 15:28] LABS: ALANINE AMINOTRANSFERASE 10 U/L (12-78); ALBUMIN 2.6 G/DL (3.4-5.0); ALBUMIN/GLOBULIN RATIO 0.7 (1.1-1.5); ALKALINE PHOSPHATASE 82 IU/L (46-116); ANION GAP 8 (8-16); ASPARTATE AMINO TRANSFERASE 17 U/L (10-37); BILIRUBIN,TOTAL 0.3 MG/DL (0.1-1.0); BLOOD UREA NITROGEN 65 MG/DL (7-18); BUN/CREATININE RATIO 27.4 (10.0-20.0); CALCIUM 9.1 MG/DL (8.5-10.1); CHLORIDE 105 MMOL/L (99-107); CREATININE 2.37 MG/DL (0.40-0.90); GLUCOSE 243 MG/DL (70-104); POTASSIUM 4.3 MMOL/L (3.5-5.1); SODIUM 138 MMOL/L (135-145); TOTAL CARBON DIOXIDE 24.8 MMOL/L (24-32); TOTAL PROTEIN 6.6 G/DL (6.4-8.2); eCRCL 20 ML/MIN; eGFR 20 ML/MIN
[2023-02-11 15:37] LABS: PRO BRAIN NATRIURETIC PEPTIDE 11096 PG/ML (0-450)
[2023-02-11] MEDS ORDERED: diltiazem 5mg/ml 5ml inj. IV ONE (15:45)
[2023-02-11 16:50] LABS: MAGNESIUM 1.7 MG/DL (1.5-2.4)
--- NOTE | 2023-02-11 17:41 | NUR ---
TRANSPORTATION ARRANGED- ETA 30-45 MINS
[2023-02-11 17:43] VITALS: BP 120/76; PULSE 76; RESP 19; O2SAT 100
--- NOTE | 2023-02-11 17:44 | NUR ---
This RN attempted to give report to nurses station at [facility]. No answer. Will attempt to give report at a later time.
== END 2023-02-11 18:00 | disposition home or self-care (01) ==
LOC: ER 14:00
DX: I48.91 Unspecified atrial fibrillation (principal); Z88.6 Allergy status to analgesic agent; Z88.8 Allergy status to other drugs, medicaments and biological substances; Z79.899 Other long term (current) drug therapy
CPT/HCPCS: 36415; 71045; 80053; 83735; 83880; 84484; 85025; 93005; 96374; 99285; J3490

== ENCOUNTER 2023-02-24 15:02 | Inpatient (IN) | payer OTHER ==
[~2023-02-24] VITALS: Ht 175.3 cm; Wt 93.0 kg
[~2023-02-24 15:02] MED LIST changes: -INSU100I57; +INSU100I57 SQ
[2023-02-24 15:42] LABS: BASOPHILS # (AUTO) 0.1 X10'3 (0-0.2); BASOPHILS % (AUTO) 0.9 % (0-1); EOSINOPHILS % (AUTO) 0.2 % (0-6); HEMATOCRIT 36.2 % (35.0-45.0); HEMOGLOBIN 10.9 g/dl (12.0-16.0); LYMPHOCYTES # (AUTO) 0.8 X10'3 (1.1-4.8); LYMPHOCYTES % (AUTO) 9.5 % (21-51); MEAN CORPUSCULAR HEMOGLOBIN 30.4 PG (27.0-31.0); MEAN CORPUSCULAR HGB CONC 30.1 g/dL (33.0-36.5); MEAN CORPUSCULAR VOLUME 100.8 FL (78-98); MEAN PLATELET VOLUME 9.3 FL (7.4-10.4); MONOCYTES # (AUTO) 0.8 X10'3 (0-0.9); MONOCYTES % (AUTO) 9.6 % (2-12); NEUTROPHILS # (AUTO) 6.7 X10'3 (1.8-7.7); NEUTROPHILS % (AUTO) 79.8 % (42-75); PLATELET COUNT 474 X10'3 (140-440); RED BLOOD COUNT 3.59 X10'6 (4.20-5.60); RED CELL DISTRIBUTION WIDTH 16.1 % (11.5-14.5); WHITE BLOOD COUNT 8.4 X10'3 (4.5-11.0)
--- NOTE | 2023-02-24 15:58 | NUR ---
pt placed on 10l simple mask, RT and MD at bedside speaking with pt. and daughter
[2023-02-24 16:19] VITALS: PULSE 111; RESP 21; O2SAT 100
[2023-02-24] MEDS ORDERED: normal saline 1000ml 1,000 ML IV ONE (16:20)
[2023-02-24 16:29] VITALS: PULSE 111; RESP 20; O2SAT 99
--- NOTE | 2023-02-24 17:20 | NUR ---
PT ON BIPAP AND TOLERATING WELL. DAUGHTER AT BEDSIDE.
[2023-02-24 17:28] LABS: ALANINE AMINOTRANSFERASE 246 U/L (12-78); ALBUMIN 2.5 G/DL (3.4-5.0); ALBUMIN/GLOBULIN RATIO 0.7 (1.1-1.5); ALKALINE PHOSPHATASE 142 IU/L (46-116); ANION GAP 17 (8-16); ASPARTATE AMINO TRANSFERASE 431 U/L (10-37); BILIRUBIN,TOTAL 1.4 MG/DL (0.1-1.0); BLOOD UREA NITROGEN 118 MG/DL (7-18); BUN/CREATININE RATIO 27.8 (10.0-20.0); CALCIUM 9.1 MG/DL (8.5-10.1); CHLORIDE 104 MMOL/L (99-107); CREATININE 4.24 MG/DL (0.40-0.90); GLUCOSE 179 MG/DL (70-104); MAGNESIUM 1.5 MG/DL (1.5-2.4); PRO BRAIN NATRIURETIC PEPTIDE 8809 PG/ML (0-450); SODIUM 138 MMOL/L (135-145); TOTAL PROTEIN 6.3 G/DL (6.4-8.2); eCRCL 11 ML/MIN; eGFR 10 ML/MIN
[2023-02-24 17:30] LABS: POTASSIUM 7.6 MMOL/L (3.5-5.1)
[2023-02-24] MEDS ORDERED: calcium gluconate inj. 2 GM in normal saline 100ml IV soln 100 ML IV STA (17:43)
[2023-02-24] MEDS ORDERED: insulin regular, human 10 units/0.1 ml syringe IV ONE (17:45)
[2023-02-24] MEDS ORDERED: albuterol 2.5 MG/3 ML nebule CONTNEB PRN (17:45)
[2023-02-24] MEDS ORDERED: dextrose 50%-water 50ml dispensing syringe IV ONE (17:45)
[2023-02-24] MEDS: CALCIUM GLUC 1gm/50ml NACL,iso 50 ML IV SCH ×2 (18:02→19:35)
--- NOTE | 2023-02-24 18:17 | NUR ---
PT OFF OF BIPAP AND ON 4L NC. PT TOLERATING WELL. PT IS SATTING 97% ON [address] HERNANDEZ AT BEDSIDE
[2023-02-24] MEDS ORDERED: magnesium 4gm in 100ml NS 100 ML IV PRN (18:40)
[2023-02-24] MEDS ORDERED: potassium Cl 40MEQ/1/2NS 520ml 520 ML IV PRN (18:40)
[2023-02-24] MEDS ORDERED: potassium Cl 20 mEq SR tablet PO PRN ×2 (18:40)
[2023-02-24] MEDS ORDERED: mag hydrox/Alum hydrox/simeth 30ml oral suspension PO PRN ×2 (18:40→19:15)
[2023-02-24] MEDS ORDERED: magnesium 2GM in 50ml NS 50 ML IV PRN (18:40)
[2023-02-24] MEDS ORDERED: ondansetron/PF 4mg/2ml inj IV PRN ×2 (18:40→19:15)
[2023-02-24] MEDS ORDERED: magnesium hydroxide 30ml (MOM) UD suspension PO PRN ×2 (18:40→19:15)
[2023-02-24] MEDS ORDERED: sodium bicarbonate (8.4%) 1 mEq/ml syringe IV ONE (18:50)
[2023-02-24] MEDS ORDERED: sodium polystyrene sulfonate 15gm/60ml oral suspension PO ONE (18:50)
--- NOTE | 2023-02-24 19:00 | NUR ---
PT REFUSING ADDITIONAL IV PLACEMENT AND ALL FURTHER POKES.
--- NOTE | 2023-02-24 19:00 | NUR ---
PLACED EJ ON R SIDE. PER MD SIMENTAL ACCESS. LINE FLUSHED
[2023-02-24] MEDS ORDERED: LIDOCAINE 1%/EPI 1:100,000 inj. 10 ML multi-dose vial IJ ONE (19:05)
[2023-02-24] MEDS ORDERED: acetaminophen 325mg tablet PO PRN (19:15)
[2023-02-24] MEDS ORDERED: calcium gluconate 0.46mEq/mL (100mg/mL) inj IV ONE (19:15)
[2023-02-24] MEDS ORDERED: PERFLUTREN PROTEIN-A MICROSPHR (Optison) 0.22 MG/ML 3ML VIAL IV ONE (19:15)
[2023-02-24] MEDS ORDERED: metoprolol tartrate 50mg tablet PO ONE (19:25)
[2023-02-24] MEDS ORDERED: dextrose 50%-water 50ml dispensing syringe IV PRN ×2 (19:25)
[2023-02-24] MEDS ORDERED: MESSAGE TO PHARMACY PO ONE (19:25)
[2023-02-24] MEDS ORDERED: DEXTROSE 15 GM of carb/4 tabs (each vial/BOTTLE has 4 tablets) PO PRN ×2 (19:25)
[2023-02-24] MEDS ORDERED: glucagon, human recombinant 1mg kit SUBCUT PRN (19:25)
[2023-02-24] MEDS: SODIUM BICARB 150mEq/D5W 1L 1,000 ML IV SCH (19:26)
[2023-02-24 19:40] LABS: ALBUMIN 2.3 G/DL (3.4-5.0); ANION GAP 17 (8-16); BLOOD UREA NITROGEN 125 MG/DL (7-18); BUN/CREATININE RATIO 30.8 (10.0-20.0); CALCIUM 9.2 MG/DL (8.5-10.1); CHLORIDE 106 MMOL/L (99-107); CREATININE 4.06 MG/DL (0.40-0.90); GLUCOSE 202 MG/DL (70-104); SODIUM 141 MMOL/L (135-145); TOTAL CARBON DIOXIDE 18.3 MMOL/L (24-32); eCRCL 12 ML/MIN; eGFR 11 ML/MIN
--- NOTE | 2023-02-24 19:48 | NUR ---
PER MD ANGELA DESIR CALCIUM GLUCONATE. RUN BICARB DRIP.
--- NOTE | 2023-02-24 19:59 | NUR ---
PT HAS PROLAPSED BLADDER. MD AWARE. PT DENIES PAIN
[2023-02-24] MEDS: docusate sod 100mg capsule PO SCH ×2 (20:00)
[2023-02-24] MEDS: sodium polystyrene sulfonate 15gm/60ml oral suspension PO SCH (20:00)
[2023-02-24] MEDS: K and/or MAG REPLACEMENT MC SCH (20:00)
[2023-02-24] MEDS: heparin, porcine 5000 units/ml vial SQ SCH (20:13)
[2023-02-24 20:42] VITALS: PULSE 87; RESP 18; O2SAT 97
[2023-02-24] MEDS ORDERED: ASPI81TA52 PO (23:44)
[2023-02-24] MEDS ORDERED: CLOP75TA34 PO (23:44)
[2023-02-24] MEDS ORDERED: PANT-47 PO (23:56)
[2023-02-24] MEDS ORDERED: DOCU100C40 PO (23:56)
[2023-02-24] MEDS ORDERED: INSU100I75 SQ (23:56)
[2023-02-24] MEDS ORDERED: ATOR40TA71 PO (23:56)
[2023-02-24 23:57] VITALS: PULSE 104; RESP 18; O2SAT 97
[2023-02-25] VITALS (17 sets, daily range): BP systolic 84–128; BP diastolic 36–55; PULSE 76–112; RESP 14–24; TEMP 97.2–98.1; O2SAT 91–99
[2023-02-25] MEDS ORDERED: NA P133E4 RC (00:06)
[2023-02-25] MEDS ORDERED: MAGN400O6 PO (00:06)
[2023-02-25] MEDS ORDERED: BISA10SU60 RC (00:06)
[2023-02-25] MEDS ORDERED: acetaminophen 325mg tablet PO ONE (01:10)
[2023-02-25] MEDS: SODIUM BICARB 150mEq/D5W 1L 1,000 ML IV SCH ×2 (01:28→08:10)
[2023-02-25] MEDS: sodium polystyrene sulfonate 15gm/60ml oral suspension PO SCH ×4 (01:56→20:00)
[2023-02-25 02:22] LABS: ALBUMIN 2.2 G/DL (3.4-5.0); ANION GAP 19 (8-16); BLOOD UREA NITROGEN 123 MG/DL (7-18); BUN/CREATININE RATIO 28.8 (10.0-20.0); CALCIUM 8.6 MG/DL (8.5-10.1); CHLORIDE 105 MMOL/L (99-107); CREATININE 4.27 MG/DL (0.40-0.90); GLUCOSE 219 MG/DL (70-104); MAGNESIUM 1.3 MG/DL (1.5-2.4); POTASSIUM 5.8 MMOL/L (3.5-5.1); SODIUM 142 MMOL/L (135-145); eCRCL 11 ML/MIN; eGFR 10 ML/MIN
[2023-02-25] MEDS ORDERED: sodium polystyrene sulfonate 15gm/60ml oral suspension PO ONE (02:35)
--- NOTE | 2023-02-25 02:58 | NUR ---
pt laying on left side. BP cuff on right arm giving false reading. PT refusing bp cuff to be moved.
--- NOTE | 2023-02-25 07:30 | NUR ---
PT ARRIVED TO THE TELEMETRY FLOOR VIA GURNEY, WITH THE ED NURSE STATING THEY ARE GIVING A BEDSIDE REPORT. I WAS UNAVAILABLE AT THE TIME, SO THE CLINICAL CATECHIST, LUCY, TOOK BEDSIDE REPORT. BP IS SOFT AND PATIENT IS ALERT, TIRED AND COLD. SHE WANTS TO LAY DOWN. NUCLEAR MEDICINE CALLED FOR PT TO GO TO VQ SCAN, HOWEVER PATIENT IS UNABLE TO LIE FLAT AND IS ALSO REFUSING. PT THEN ASKED "WHAT IS THAT PLACE CALLED WHERE YOU GO TO , HOSPICE! THATS WHAT I WANT RIGHT NOW." EXPRESSED EMPATHY FOR PATIENTS CURRENT SITUATION/CONDITION OF HER HEALTH. SHE TOLD ME SHE IS VERY SOUND IN HER DECISION ABOUT HOSPIC. MD CAME IN AT THAT TIME AND I RELAYED WHAT THE PATIENT HAD JUST STATED. MD RESIDENT STATED SHE WOULD CONSULT WITH ASSIGNED HOSPITALIST. DR HERNANDEZ ALSO CAME AND ASSESSED THE PATIENT. ORDERS RECEIVED AND NOTED
--- NOTE | 2023-02-25 07:33 | NUR ---
Reprort given at bedside per house worker to charge nurse Sridevi who stated "I know everything about this patient." Per charge nurse, "no further questions."
[2023-02-25] MEDS: K and/or MAG REPLACEMENT MC SCH ×2 (08:00→20:00)
[2023-02-25] MEDS: docusate sod 100mg capsule PO SCH ×4 (08:00→20:00)
[2023-02-25] MEDS: metoprolol succinate 25mg (24-HOUR) SR. Tablet PO SCH (08:00)
[2023-02-25] MEDS: heparin, porcine 5000 units/ml vial SQ SCH ×2 (08:00→22:32)
[2023-02-25] MEDS: ipratropium/albuterol 3ml nebule NEB SCH ×4 (08:11→20:51)
--- NOTE | 2023-02-25 08:50 | NUR ---
ABG attemped twice unsuccessfully, pt states "that's enough!". She wants to eat her breakfast, will attempt ABG again shortly.
[2023-02-25] MEDS ORDERED: sodium bicarbonate (8.4%) 1 mEq/ml syringe IV ONE (10:05)
--- NOTE | 2023-02-25 10:10 | NUR ---
ORDERS FOR 2 AMPS OF SODIUM BICARB IV, RENAL ULTRASOUND, AND GA PUT IN PER DR. HERNANDEZ. Addendum: 02/25/23 at 1026 by Sridevi Flowers RN ORDER TO D/C NM LUNG PUT IN PER DR. HERNANDEZ.
[2023-02-25 10:39] LABS: ALBUMIN 2.5 G/DL (3.4-5.0); ANION GAP 18 (8-16); BLOOD UREA NITROGEN 127 MG/DL (7-18); CALCIUM 8.5 MG/DL (8.5-10.1); CHLORIDE 104 MMOL/L (99-107); CHOL/HDL RATIO 2.4 (0.00-4.99); CHOLESTEROL 104 MG/DL (0-200); CREATININE 4.54 MG/DL (0.40-0.90); GLUCOSE 235 MG/DL (70-104); HDL CHOLESTEROL 43 MG/DL (35-60); LDL CHOLESTEROL 53 MG/DL (50-100); POTASSIUM 5.1 MMOL/L (3.5-5.1); SODIUM 142 MMOL/L (135-145); TOTAL CARBON DIOXIDE 20.1 MMOL/L (24-32); TRIGLYCERIDES 53 MG/DL (20-135); eCRCL 10 ML/MIN; eGFR 9 ML/MIN
[2023-02-25 10:41] LABS: THYROID STIMULATING HORMONE 4.86 ulU/ml (0.34-4.50)
--- NOTE | 2023-02-25 11:45 | NUR ---
PT REFUSING GA CATHETER. ATTEMPTS X1 TO PLACE GA AND WAS SUCCESSFUL WITH URINE RETURN. HOWEVER, PATIENT STARTED SCREAMING THAT THE PAIN WAS UNBREARABLE AND I HAD TO REMOVE TO CATHETER PER THE PATIENT. WILL TRY TO REATTEMPT THERE IS A DOCTOR ORDERED GA
--- NOTE | 2023-02-25 13:08 | NUR ---
CRITICAL VALUE OF 5.6 LACTIC ACID CALLED BY LAB - SENT DR HERNANDEZ A MESSAGE REGARDING RESULTS - NO NOW ORDERS OF NOW. PT IS GOING TO BE TRANSFERRING TO THE ICU WITHIN THE NEXT HOUR PER DR HERNANDEZ
[2023-02-25] MEDS: aspirin 81mg, enteric-coated 1 TAB TABLET.DR PO SCH (13:46)
[2023-02-25] MEDS: pantoprazole 40mg Tablet.DR PO SCH (13:46)
[2023-02-25] MEDS: levoTHYROXINE 125mcg tablet PO SCH (13:46)
[2023-02-25] MEDS: clopidogrel 75mg tablet PO SCH (13:46)
--- NOTE | 2023-02-25 14:07 | NUR ---
ORDER FOR 1L NORMAL SALINE BOLUS PUT IN PER DR. CLEMONS
[2023-02-25] MEDS ORDERED: normal saline 1000ml 1,000 ML IV ONE (14:10)
[2023-02-25] MEDS: sodium bicarbonate (8.4%) inj. 150 MEQ in dextrose 5%-water 1,000 ML IV SCH ×2 (14:50→22:28)
[2023-02-25 15:02] LABS: BFSOURCE LEFT PLEURAL FLD; PLEURAL FLUID PH 7.501 (7.63-7.65)
[2023-02-25 15:16] LABS: GLUCOSE,BODY FLUID 303 MG/DL; LDH,BODY FLUID 165 U/L
[2023-02-25 15:37] LABS: BFSOURCE LEFT PLEURAL FLD; LYMPHOCYTES,BODY FLUID 44 %; MONOCYTES,BODY FLUID 11 %; NEUTROPHILS,BODY FLUID 45 %
[2023-02-25 15:38] LABS: BF MESOTHELIAL CELLS FEW; BF RBC COUNT 205 /CU MM; BF WBC COUNT 230 /CU MM (0-1000); BFAPPEAR HAZY; BFCOLOR YELLOW; BFVOLUME 9 ML
[2023-02-25] MEDS: magnesium Cl slow-release 64mg tablet PO PRN (16:04)
--- NOTE | 2023-02-25 16:06 | NUR ---
charting reviewed with Student RN Addendum: 02/25/23 at 1606 by Aniket Mayers INSTRUCTOR GRETTA Amended: Links added.
[2023-02-25 16:07] LABS: TOTAL PROTEIN,BODY FLUID < 2.0 G/DL
[2023-02-25 16:46] LABS: ALBUMIN 2.4 G/DL (3.4-5.0); ANION GAP 19 (8-16); BLOOD UREA NITROGEN 127 MG/DL (7-18); BUN/CREATININE RATIO 27.5 (10.0-20.0); CALCIUM 7.9 MG/DL (8.5-10.1); CHLORIDE 102 MMOL/L (99-107); CREATININE 4.62 MG/DL (0.40-0.90); GLUCOSE 363 MG/DL (70-104); POTASSIUM 5.3 MMOL/L (3.5-5.1); SODIUM 141 MMOL/L (135-145); eCRCL 10 ML/MIN; eGFR 9 ML/MIN
--- NOTE | 2023-02-25 17:18 | NUR ---
DR GUTIERREZ AT BEDSIDE TO ASSESS PATIENT. ORDERS WRITTEN FOR A PBNP.
--- NOTE | 2023-02-25 17:40 | NUR ---
MD RESIDENT CALLED AND WAS ASKING WHY PATIENT WAS NOT IN THE ICU YET. AFTER DISCUSSING WITH HOT MOLDER ON TELE, I FOUND OUT ICU MD DECIDED SHE WAS STABLE ENOUGH FOR PCU. NO NEW ORDERS RECEIVED AT THIS TIME
[2023-02-25] MEDS ORDERED: acetaminophen 325mg tablet PO PRN (17:45)
--- NOTE | 2023-02-25 17:57 | NUR ---
PATIENT VERBALIZED PAIN LEVEL OF 7. NURSE LEXY INFORMED. ORDER PLACED FOR ACETAMINOPHEN 650 FOR PAIN LEVEL 1-3 BY NURSE. INFORMED PATIENT PAIN LEVEL HIGHER THAN 3. PER NURSE OK TO GIVE
--- NOTE | 2023-02-25 18:08 | NUR ---
NOTIFIED MD OF PATIENT WITH UNCONTROLLED PAIN. ADMINISTERED TYLENOL BUT IT HASNT HELPED MUCH. NO NEW ORDERS AT THIS TIME, MD WAS GOING TO REVIEW CHART AND PLACE AN ORDER
[2023-02-25] MEDS ORDERED: HYDROcodone/acetaminophen 10/325mg tab PO PRN (18:25)
[2023-02-25] MEDS ORDERED: morphine 2 MG/ML inj. syringe IV PRN (18:25)
--- NOTE | 2023-02-25 19:23 | NUR ---
PAGED DR. CLEMONS FOR ROOM 3020, [place]. Good evening doc, Sorry to bother you. This pt has a strong wishes for Hospice care and was upset that nobody is listening to her. I talked resident; she wanted me to inform you again. Thank you Umm [facility] [id number]
[2023-02-25] MEDS ORDERED: insulin Lispro (HumaLOG) vial - multi-dose SQ SCH (19:30)
[2023-02-25] MEDS ORDERED: dextrose 50%-water 50ml dispensing syringe IV PRN ×2 (19:30)
[2023-02-25] MEDS ORDERED: glucagon, human recombinant 1mg kit SUBCUT PRN (19:30)
[2023-02-25] MEDS ORDERED: DEXTROSE 15 GM of carb/4 tabs (each vial/BOTTLE has 4 tablets) PO PRN ×2 (19:30)
--- NOTE | 2023-02-25 19:30 | NUR ---
DR. CLEMONS CALLED BACK AND MENTIONED THAT HE HAD AN EXTENSIVE DISCUSSION WITH PT'S DAUGHTER AND SHE WAS NOT ABLE TO MAKE UP MIND AND DR. CLEMONS WILL ADDRESS PT'S WISHES OF HOSPICE CARE FIRST THING IN THE MORNING Addendum: 02/25/23 at 2020 by Karey Diaz RN AND GAVE VERBAL ORDERS FOR MORPHINE 2MG Q2H PRN TO CONTROL THE PAIN
[2023-02-25] MEDS: insulin glargine (Lantus) pen - multi-dose SQ SCH (21:00)
--- NOTE | 2023-02-25 22:30 | NUR ---
Pt refusing lab draws and some PO medications like Kayexalate stating shes tired of being bothered, doesn't want be poked anymore or doesn't want to take a medication that is going to make her have more bowel movements. Educated pt on usage of current medications and importance of labs to help reassess lab values to better provide care and treatment of condition, pt verbalizes understanding and still wants to be left alone at this time, aware, Doctor discussing care options with pt in the AM, pt discussed talk of potential "hospice" care moving forward and interested in talk with doctor. VSS, respirations even and unlabored, even rise and fall of chest, denies pain when asked. Call light and fluids within reach.
[2023-02-25] MEDS: atorvastatin 20mg tablet PO SCH (22:33)
[2023-02-25] MEDS: insulin Lispro (HumaLOG) vial - multi-dose SQ SCH (23:02)
[2023-02-26] VITALS (13 sets, daily range): BP systolic 78–108; BP diastolic 38–50; PULSE 87–125; RESP 15–20; TEMP 96.8–97.9; O2SAT 94–98
[2023-02-26] MEDS: sodium polystyrene sulfonate 15gm/60ml oral suspension PO SCH ×4 (02:00→20:00)
--- NOTE | 2023-02-26 06:30 | NUR ---
Patient in room PCU 3020. I have received report from GRETTA Becerra and had the opportunity to ask questions and assume patient care.
[2023-02-26] MEDS: sodium bicarbonate (8.4%) inj. 150 MEQ in dextrose 5%-water 1,000 ML IV SCH (07:00)
[2023-02-26] MEDS: levoTHYROXINE 125mcg tablet PO SCH (07:19)
[2023-02-26] MEDS: pantoprazole 40mg Tablet.DR PO SCH (07:19)
[2023-02-26] MEDS: morphine 2 MG/ML inj. syringe IV PRN ×3 (07:20→20:03)
[2023-02-26] MEDS: ipratropium/albuterol 3ml nebule NEB SCH ×4 (07:32→20:25)
[2023-02-26] MEDS: docusate sod 100mg capsule PO SCH ×4 (08:00→20:00)
[2023-02-26] MEDS: metoprolol succinate 25mg (24-HOUR) SR. Tablet PO SCH ×2 (08:00→09:08)
[2023-02-26] MEDS: heparin, porcine 5000 units/ml vial SQ SCH ×2 (08:00→19:49)
[2023-02-26] MEDS: K and/or MAG REPLACEMENT MC SCH ×2 (08:00→20:00)
[2023-02-26] MEDS: aspirin 81mg, enteric-coated 1 TAB TABLET.DR PO SCH (09:09)
[2023-02-26] MEDS: clopidogrel 75mg tablet PO SCH (09:09)
--- NOTE | 2023-02-26 09:22 | NUR ---
Noted pt with a low Damion of 12. Per EMR pt with no edema or open wounds. Per EMR pt with T2DM, well controlled for geriatric age with A1c 8.0%. DM education not warranted at this time. Will continue to follow. Addendum: 02/26/23 at [address] Amended: Links added.
[2023-02-26 10:11] LABS: ALBUMIN 2.1 G/DL (3.4-5.0); ANION GAP 13 (8-16); BLOOD UREA NITROGEN 126 MG/DL (7-18); BUN/CREATININE RATIO 27.9 (10.0-20.0); CALCIUM 7.4 MG/DL (8.5-10.1); CHLORIDE 100 MMOL/L (99-107); CREATININE 4.51 MG/DL (0.40-0.90); FREE T4 (FREE THYROXINE) 1.18 NG/DL (0.73-1.40); GLUCOSE 280 MG/DL (70-104); MAGNESIUM 1.3 MG/DL (1.5-2.4); POTASSIUM 4.2 MMOL/L (3.5-5.1); SODIUM 138 MMOL/L (135-145); THYROID STIMULATING HORMONE 7.15 ulU/ml (0.34-4.50); TOTAL CARBON DIOXIDE 25.4 MMOL/L (24-32); eCRCL 10 ML/MIN; eGFR 9 ML/MIN
--- NOTE | 2023-02-26 12:05 | NUR ---
PRESSURE ULCER EDUCATION: DEFINITION: A pressure ulcer is an area of skin that breaks down when you stay in one position too long. The constant pressure against the skin reduces the blood flow to that area and the affected tissue dies. CAUSES: "Being bedridden or in a wheelchair "Fragile skin "Having a chronic condition, such as diabetes or vascular disease "Inability to move certain parts of your body without assistance "Older age "Incontinence of urine or stool SYMPTOMS: "A reddened area that DOES NOT turn white when pressed on - this can be the beginning of a pressure ulcer "A blister, deep sore or a crater - these can be advanced pressure ulcers FIRST AID: "Relieve the pressure on this area "Keep the area clean and dry "Call your primary doctor if you see any of the above symptoms "DO NOT massage the area "DO NOT use a donut shaped or ring shaped pillow- these actually interfere with the blood flow and cause complications PREVENTION: "Check for pressure ulcers everyday "Change position at least every two hours to relieve pressure "Use items that help relieve pressure- pillows, sheepskin, foam padding, and powders. "Keep skin clean and dry "Eat healthy well balanced meals "Exercise daily IF YOU SEE ANY OF THESE SYMPTOMS WHILE IN THE HOSPITAL - TELL YOUR NURSE IMMEDIATELY. IF YOU SEE ANY OF THESE SYMPTOMS WHILE AT HOME OR HAVE ANY QUESTIONS OR CONCERNS ABOUT PRESSURE ULCERS - CALL YOUR PRIMARY DOCTOR IMMEDIATELY. Addendum: 02/26/23 at 1205 by Noah Caldwell RN Amended: Links added.
[2023-02-26] MEDS: normal saline 1000ml 1,000 ML IV SCH ×2 (13:50→21:58)
[2023-02-26] MEDS ORDERED: normal saline 1000ml 1,000 ML IV ONE (13:50)
[2023-02-26] MEDS: insulin Lispro (HumaLOG) vial - multi-dose SQ SCH ×2 (14:48→19:35)
[2023-02-26 15:07] LABS: ALBUMIN 2.1 G/DL (3.4-5.0); ANION GAP 13 (8-16); BLOOD UREA NITROGEN 125 MG/DL (7-18); BUN/CREATININE RATIO 26.8 (10.0-20.0); CALCIUM 7.2 MG/DL (8.5-10.1); CHLORIDE 99 MMOL/L (99-107); CREATININE 4.66 MG/DL (0.40-0.90); GLUCOSE 296 MG/DL (70-104); POTASSIUM 4.2 MMOL/L (3.5-5.1); SODIUM 137 MMOL/L (135-145); TOTAL CARBON DIOXIDE 25.4 MMOL/L (24-32); eCRCL 10 ML/MIN; eGFR 9 ML/MIN
--- NOTE | 2023-02-26 18:23 | NUR ---
1700 SVN TRIAGED. THERAPIST NOT AVAILABLE
[2023-02-26] MEDS: NUT.TX.IMP.RENAL FXN,LAC-REDUC (Nepro) 237 ML VANILLA PO SCH (18:37)
--- NOTE | 2023-02-26 18:40 | NUR ---
Problems reprioritized. Patient report given, questions answered & plan of care reviewed with GRETTA Becerra.
[2023-02-26] MEDS: atorvastatin 20mg tablet PO SCH (19:51)
[2023-02-26] MEDS: magnesium Cl slow-release 64mg tablet PO PRN (20:02)
[2023-02-26] MEDS: insulin glargine (Lantus) pen - multi-dose SQ SCH (21:41)
[2023-02-27] VITALS (11 sets, daily range): BP systolic 71–130; BP diastolic 31–74; PULSE 68–134; RESP 14–20; TEMP 97.2–98.4; O2SAT 94–97
[2023-02-27] MEDS: sodium polystyrene sulfonate 15gm/60ml oral suspension PO SCH ×3 (02:00→13:55)
[2023-02-27] MEDS: normal saline 1000ml 1,000 ML IV SCH ×2 (05:53→13:55)
[2023-02-27] MEDS: morphine 2 MG/ML inj. syringe IV PRN ×2 (05:58→21:21)
[2023-02-27 07:52] LABS: MAGNESIUM 1.3 MG/DL (1.5-2.4)
[2023-02-27] MEDS: NUT.TX.IMP.RENAL FXN,LAC-REDUC (Nepro) 237 ML VANILLA PO SCH ×3 (08:00→18:03)
[2023-02-27] MEDS: metoprolol succinate 25mg (24-HOUR) SR. Tablet PO SCH (08:00)
[2023-02-27] MEDS: K and/or MAG REPLACEMENT MC SCH (08:00)
[2023-02-27] MEDS: docusate sod 100mg capsule PO SCH ×2 (08:00→09:52)
[2023-02-27] MEDS: ipratropium/albuterol 3ml nebule NEB SCH ×2 (08:55→12:18)
[2023-02-27] MEDS: levoTHYROXINE 125mcg tablet PO SCH (09:51)
[2023-02-27] MEDS: pantoprazole 40mg Tablet.DR PO SCH (09:52)
[2023-02-27] MEDS: aspirin 81mg, enteric-coated 1 TAB TABLET.DR PO SCH (09:54)
[2023-02-27] MEDS: clopidogrel 75mg tablet PO SCH (09:54)
[2023-02-27] MEDS: heparin, porcine 5000 units/ml vial SQ SCH (09:55)
[2023-02-27] MEDS: magnesium Cl slow-release 64mg tablet PO PRN (10:07)
[2023-02-27] MEDS: insulin Lispro (HumaLOG) vial - multi-dose SQ SCH (10:10)
--- NOTE | 2023-02-27 12:19 | NUR ---
PT. REFUSED 1300 SVN
[2023-02-27] MEDS ORDERED: LORazepam 2 mg/ml vial IV PRN (15:40)
[2023-02-28 02:00] VITALS: BP 109/48; PULSE 96; RESP 18; TEMP 97.3; O2SAT 94
[2023-02-28] MEDS: morphine 2 MG/ML inj. syringe IV PRN ×2 (04:11→08:55)
[2023-02-28] MEDS: NUT.TX.IMP.RENAL FXN,LAC-REDUC (Nepro) 237 ML VANILLA PO SCH ×3 (08:23→18:10)
[2023-02-28] MEDS: morphine 10mg/0.5ml (conc. morphine) oral syringe PO PRN ×2 (17:39→22:15)
[2023-02-28 18:00] VITALS: BP 108/56; PULSE 82; RESP 16; TEMP 97.6; O2SAT 95
--- NOTE | 2023-02-28 19:01 | NUR ---
Problems reprioritized. Patient report given, questions answered & plan of care reviewed with GRETTA Jacob.
--- NOTE | 2023-02-28 19:02 | NUR ---
Patient in room PCU 3020. I have received report from Tamela GLYNN and had the opportunity to ask questions and assume patient care.
[2023-02-28 20:00] VITALS: RESP 16; O2SAT 95
[2023-02-28 22:00] VITALS: BP 106/60; PULSE 80; RESP 18; TEMP 97.7; O2SAT 96
[2023-03-01 02:00] VITALS: BP 107/58; PULSE 81; RESP 15; TEMP 97.8; O2SAT 94
--- NOTE | 2023-03-01 06:44 | NUR ---
Patient in room PCU 3020. I have received report from Cecil GLYNN and had the opportunity to ask questions and assume patient care.
[2023-03-01 07:23] VITALS: BP 99/51; PULSE 99; RESP 20; TEMP 97.4
[2023-03-01 08:00] VITALS: RESP 14; O2SAT 97
[2023-03-01] MEDS: NUT.TX.IMP.RENAL FXN,LAC-REDUC (Nepro) 237 ML VANILLA PO SCH ×4 (08:00→22:30)
[2023-03-01] MEDS: morphine 10mg/0.5ml (conc. morphine) oral syringe PO PRN (08:39)
--- NOTE | 2023-03-01 14:18 | NUR ---
Per EMR pt is now on comfort care measures. Recommend liberalizing to regular diet given comfort care measures. Addendum: 03/01/23 at [address] Amended: Links added.
[2023-03-01] MEDS: morphine 2 MG/ML inj. syringe IV PRN ×2 (17:53→22:22)
[2023-03-01 18:00] VITALS: BP 119/62; PULSE 69; RESP 20; TEMP 98.6; O2SAT 100
--- NOTE | 2023-03-01 18:34 | NUR ---
Problems reprioritized. Patient report given, questions answered & plan of care reviewed with Princess GLYNN, patient stable a transfer of care.
[2023-03-02] MEDS: morphine 10mg/0.5ml (conc. morphine) oral syringe PO PRN (05:18)
[2023-03-02 06:00] VITALS: BP 104/52; PULSE 100; RESP 18; TEMP 97.6; O2SAT 99
--- NOTE | 2023-03-02 06:26 | NUR ---
Problems reprioritized. Patient report given, questions answered & plan of care reviewed with GRETTA AYALA.
[2023-03-02 08:00] VITALS: RESP 15; O2SAT 96
[2023-03-02 11:00] VITALS: BP 101/42; PULSE 70; RESP 19; TEMP 97.8; O2SAT 98
[2023-03-02] MEDS: NUT.TX.IMP.RENAL FXN,LAC-REDUC (Nepro) 237 ML VANILLA PO SCH ×2 (13:18→18:10)
[2023-03-02 15:00] VITALS: BP 104/54; PULSE 80; RESP 16; TEMP 98; O2SAT 96
[2023-03-02 18:00] VITALS: BP 104/74; PULSE 84; RESP 20; TEMP 97.8; O2SAT 94
--- NOTE | 2023-03-02 18:21 | NUR ---
Problems reprioritized. Patient report given, questions answered & plan of care reviewed with Princess GLYNN, patient stable at transfer of care.
[2023-03-02] MEDS: nystatin 15 GM powder TP SCH (20:00)
--- NOTE | 2023-03-03 06:14 | NUR ---
Problems reprioritized. Patient report given, questions answered & plan of care reviewed with GRETTA HITCHCOCK AND GRETTA AYALA.
[2023-03-03 08:00] VITALS: RESP 16; O2SAT 95
[2023-03-03] MEDS: NUT.TX.IMP.RENAL FXN,LAC-REDUC (Nepro) 237 ML VANILLA PO SCH ×3 (08:00→18:00)
[2023-03-03] MEDS: nystatin 15 GM powder TP SCH ×2 (11:05→20:15)
[2023-03-03] MEDS: morphine 10mg/0.5ml (conc. morphine) oral syringe PO PRN ×2 (11:36→15:46)
[2023-03-03 14:00] VITALS: RESP 18; O2SAT 94
[2023-03-03 18:00] VITALS: BP 94/61; PULSE 57; RESP 17; TEMP 98.1; O2SAT 97
--- NOTE | 2023-03-03 18:24 | NUR ---
Problems reprioritized. Patient report given, questions answered & plan of care reviewed with Tomy GLYNN, patient stable at transfer of care. .
[2023-03-03 20:00] VITALS: RESP 17; O2SAT 97
[2023-03-03 22:00] VITALS: BP 140/62; PULSE 80; RESP 19; TEMP 97.8; O2SAT 92
--- NOTE | 2023-03-04 06:33 | NUR ---
Patient in room PCU 3020. I have received report from Tomy GLYNN and had the opportunity to ask questions and assume patient care. Patient resting in bed in no acute distress.
[2023-03-04 07:00] VITALS: BP 119/50; PULSE 77; RESP 18; TEMP 97; O2SAT 100
[2023-03-04 08:00] VITALS: RESP 18; O2SAT 98
[2023-03-04] MEDS: NUT.TX.IMP.RENAL FXN,LAC-REDUC (Nepro) 237 ML VANILLA PO SCH ×3 (08:00→18:00)
[2023-03-04] MEDS: nystatin 15 GM powder TP SCH ×2 (08:00→20:47)
[2023-03-04 11:00] VITALS: BP 117/76; PULSE 63; RESP 20; TEMP 97.6; O2SAT 96
--- NOTE | 2023-03-04 16:15 | NUR ---
patient refused lunch but drank all of protein shake her daughter brought her.
[2023-03-04 18:00] VITALS: BP 154/74; PULSE 145; RESP 17; TEMP 97.2; O2SAT 95
--- NOTE | 2023-03-04 18:17 | NUR ---
Problems reprioritized. Patient report given, questions answered & plan of care reviewed with Tomy GLYNN. Patient resting in bed in no acute distress.
[2023-03-04 19:24] LABS: BASOPHILS # (AUTO) 0.1 X10'3 (0-0.2); BASOPHILS % (AUTO) 0.8 % (0-1); EOSINOPHILS # (AUTO) 0.3 X10'3 (0-0.9); EOSINOPHILS % (AUTO) 3.6 % (0-6); HEMATOCRIT 32.7 % (35.0-45.0); HEMOGLOBIN 10.2 g/dl (12.0-16.0); LYMPHOCYTES # (AUTO) 0.7 X10'3 (1.1-4.8); LYMPHOCYTES % (AUTO) 8.6 % (21-51); MEAN CORPUSCULAR HEMOGLOBIN 30.5 PG (27.0-31.0); MEAN CORPUSCULAR HGB CONC 31.2 g/dL (33.0-36.5); MEAN CORPUSCULAR VOLUME 97.8 FL (78-98); MEAN PLATELET VOLUME 9.1 FL (7.4-10.4); MONOCYTES # (AUTO) 0.9 X10'3 (0-0.9); MONOCYTES % (AUTO) 11.9 % (2-12); NEUTROPHILS # (AUTO) 5.8 X10'3 (1.8-7.7); NEUTROPHILS % (AUTO) 75.1 % (42-75); PLATELET COUNT 211 X10'3 (140-440); RED BLOOD COUNT 3.35 X10'6 (4.20-5.60); WHITE BLOOD COUNT 7.7 X10'3 (4.5-11.0)
[2023-03-04 19:43] LABS: ALANINE AMINOTRANSFERASE 154 U/L (12-78); ALBUMIN 2.1 G/DL (3.4-5.0); ALBUMIN/GLOBULIN RATIO 0.6 (1.1-1.5); ALKALINE PHOSPHATASE 95 IU/L (46-116); ANION GAP 9 (8-16); ASPARTATE AMINO TRANSFERASE 27 U/L (10-37); BILIRUBIN,TOTAL 0.9 MG/DL (0.1-1.0); BLOOD UREA NITROGEN 112 MG/DL (7-18); BUN/CREATININE RATIO 33.7 (10.0-20.0); CALCIUM 8.2 MG/DL (8.5-10.1); CHLORIDE 106 MMOL/L (99-107); CREATININE 3.32 MG/DL (0.40-0.90); GLUCOSE 305 MG/DL (70-104); MAGNESIUM 1.2 MG/DL (1.5-2.4); PHOSPHORUS 5.2 MG/DL (2.3-4.5); SODIUM 143 MMOL/L (135-145); TOTAL CARBON DIOXIDE 27.8 MMOL/L (24-32); TOTAL PROTEIN 5.7 G/DL (6.4-8.2); eCRCL 14 ML/MIN; eGFR 13 ML/MIN
[2023-03-04 20:00] VITALS: RESP 22; O2SAT 96
[2023-03-04 22:00] VITALS: BP 109/56; PULSE 150; RESP 20; TEMP 97.8; O2SAT 96
[2023-03-05] VITALS (9 sets, daily range): BP systolic 121–140; BP diastolic 52–77; PULSE 80–148; RESP 16–21; TEMP 97.3–97.7; O2SAT 90–98
[2023-03-05] MEDS ORDERED: morphine 2 MG/ML inj. syringe IV ONE (00:10)
--- NOTE | 2023-03-05 06:13 | NUR ---
Patient in room PCU 3020. I have received report from Tomy GLYNN and had the opportunity to ask questions and assume patient care.Patient is resting in bed in no acute distress.
[2023-03-05] MEDS: NUT.TX.IMP.RENAL FXN,LAC-REDUC (Nepro) 237 ML VANILLA PO SCH ×3 (08:00→18:00)
[2023-03-05] MEDS: nystatin 15 GM powder TP SCH ×2 (08:00→21:16)
[2023-03-05] MEDS ORDERED: MESSAGE TO PHARMACY PO ONE (08:05)
[2023-03-05] MEDS ORDERED: DEXTROSE 15 GM of carb/4 tabs (each vial/BOTTLE has 4 tablets) PO PRN ×2 (08:05)
[2023-03-05] MEDS ORDERED: dextrose 50%-water 50ml dispensing syringe IV PRN ×2 (08:05)
[2023-03-05] MEDS ORDERED: glucagon, human recombinant 1mg kit SUBCUT PRN (08:05)
[2023-03-05] MEDS ORDERED: metoprolol succinate 25mg (24-HOUR) SR. Tablet PO SCH (08:40)
[2023-03-05 08:47] LABS: BASOPHILS # (AUTO) 0.1 X10'3 (0-0.2); BASOPHILS % (AUTO) 0.9 % (0-1); EOSINOPHILS # (AUTO) 0.2 X10'3 (0-0.9); EOSINOPHILS % (AUTO) 2.3 % (0-6); HEMATOCRIT 32.9 % (35.0-45.0); HEMOGLOBIN 10.2 g/dl (12.0-16.0); LYMPHOCYTES # (AUTO) 0.6 X10'3 (1.1-4.8); LYMPHOCYTES % (AUTO) 8.2 % (21-51); MEAN CORPUSCULAR HGB CONC 31.1 g/dL (33.0-36.5); MEAN CORPUSCULAR VOLUME 96.4 FL (78-98); MEAN PLATELET VOLUME 8.9 FL (7.4-10.4); MONOCYTES # (AUTO) 0.8 X10'3 (0-0.9); MONOCYTES % (AUTO) 10.6 % (2-12); NEUTROPHILS # (AUTO) 5.8 X10'3 (1.8-7.7); PLATELET COUNT 228 X10'3 (140-440); RED BLOOD COUNT 3.41 X10'6 (4.20-5.60); RED CELL DISTRIBUTION WIDTH 16.2 % (11.5-14.5); WHITE BLOOD COUNT 7.4 X10'3 (4.5-11.0)
[2023-03-05] MEDS: ipratropium/albuterol 3ml nebule NEB SCH ×4 (08:47→20:21)
[2023-03-05 09:09] LABS: ALANINE AMINOTRANSFERASE 129 U/L (12-78); ALBUMIN 2.1 G/DL (3.4-5.0); ALBUMIN/GLOBULIN RATIO 0.6 (1.1-1.5); ALKALINE PHOSPHATASE 93 IU/L (46-116); ANION GAP 8 (8-16); ASPARTATE AMINO TRANSFERASE 25 U/L (10-37); BILIRUBIN,TOTAL 0.8 MG/DL (0.1-1.0); BLOOD UREA NITROGEN 107 MG/DL (7-18); BUN/CREATININE RATIO 38.2 (10.0-20.0); CALCIUM 8.3 MG/DL (8.5-10.1); CHLORIDE 106 MMOL/L (99-107); GLUCOSE 328 MG/DL (70-104); MAGNESIUM 1.3 MG/DL (1.5-2.4); PHOSPHORUS 4.3 MG/DL (2.3-4.5); SODIUM 142 MMOL/L (135-145); TOTAL PROTEIN 5.8 G/DL (6.4-8.2); eCRCL 17 ML/MIN; eGFR 16 ML/MIN
--- NOTE | 2023-03-05 10:56 | NUR ---
morning SVN no given. RT not aware of order
[2023-03-05] MEDS: pantoprazole 40mg Tablet.DR PO SCH (11:03)
[2023-03-05] MEDS: furosemide 40mg/4ml inj IV SCH ×2 (11:03→19:23)
[2023-03-05] MEDS: levoTHYROXINE 125mcg tablet PO SCH (11:03)
[2023-03-05] MEDS: aspirin 81mg, enteric-coated 1 TAB TABLET.DR PO SCH (11:03)
[2023-03-05] MEDS: clopidogrel 75mg tablet PO SCH (11:03)
--- NOTE | 2023-03-05 12:18 | NUR ---
Called Resident to notify her that HR is still in 140-150s in a flutter an hour after giving her po meds
[2023-03-05 13:00] LABS: BILIRUBIN,URINE NEGATIVE (Neg); COLOR,URINE YELLOW (Yellow); GLUCOSE, URINE 500 mg/dl (Neg); KETONES,URINE NEGATIVE (Neg); LEUKOCYTE ESTERASE ,URINE LARGE (Neg); NITRITES, URINE NEGATIVE (Neg); OCCULT BLOOD,URINE SMALL (Neg); PH,URINE 6.5 (4.8-8.0); PROTEIN,URINE NEGATIVE (Neg); UROBILINOGEN,URINE 0.2 E.U/dL (0.2-1.0)
[2023-03-05 13:01] LABS: UA COLLECTION TYPE NON-SPECIFIED
[2023-03-05 13:03] LABS: CLARITY,URINE SLIGHTLY CLOUDY (Clear)
[2023-03-05 13:06] LABS: WBC,URINE TNTC /HPF (0-4)
[2023-03-05 13:07] LABS: BACTERIA,URINE 4+ /HPF (Neg); MUCUS STRANDS FEW /LPF (Neg); SQUAMOUS EPITHELIAL CELL,UR FEW /LPF (FEW)
--- NOTE | 2023-03-05 13:17 | NUR ---
second call to resident for HR sustained in 140 -150s in a flutter. Dr. Heller stated she would look at meds again.
[2023-03-05] MEDS ORDERED: metoprolol tartrate 25mg tablet PO ONE (13:25)
[2023-03-05] MEDS: insulin Lispro (HumaLOG) vial - multi-dose SQ SCH ×2 (13:32→19:27)
[2023-03-05] MEDS ORDERED: magnesium 4gm in 100ml NS 100 ML IV PRN (15:10)
[2023-03-05] MEDS ORDERED: magnesium 2GM in 50ml NS 50 ML IV PRN (15:10)
--- NOTE | 2023-03-05 15:18 | NUR ---
call to resident metoprolol temporarily brought HR down to 110s but is back up to 150s again. Resident stated she will ask Dr Bowser what he wants to do . BP 127/77
[2023-03-05] MEDS ORDERED: diltiazem CD 120mg capsule (once-daily) PO ONE (15:30)
[2023-03-05] MEDS ORDERED: digoxin 250mcg (0.25mg) tablet PO ONE (16:40)
--- NOTE | 2023-03-05 17:31 | NUR ---
1700 svn triaged. therapist not available
[2023-03-05] MEDS: CefTRIAXone/D5W-Rocephin 1gm 50 ML IV SCH (19:23)
[2023-03-05] MEDS: K and/or MAG REPLACEMENT MC SCH (20:00)
[2023-03-05 20:05] LABS: PRO BRAIN NATRIURETIC PEPTIDE 8935 PG/ML (0-450)
--- NOTE | 2023-03-05 21:01 | NUR ---
Dr Yung gave me a telephone order for 2mg morphine IV Q4H for pain.
[2023-03-05] MEDS: atorvastatin 20mg tablet PO SCH (21:12)
[2023-03-05] MEDS: insulin glargine (Lantus) pen - multi-dose SQ SCH (21:15)
[2023-03-05] MEDS: morphine 2 MG/ML inj. syringe IV PRN (21:17)
[2023-03-06] VITALS (11 sets, daily range): BP systolic 109–146; BP diastolic 45–84; PULSE 75–92; RESP 12–21; TEMP 97.4–98.1; O2SAT 90–97
--- NOTE | 2023-03-06 06:39 | NUR ---
Patient in room PCU 3020. I have received report from Kayli and had the opportunity to ask questions and assume patient care. Addendum: 03/06/23 at 0640 by Jakub Orta RN Amended: Links added.
[2023-03-06] MEDS: levoTHYROXINE 125mcg tablet PO SCH (07:00)
[2023-03-06] MEDS: ipratropium/albuterol 3ml nebule NEB SCH ×3 (08:00→20:35)
[2023-03-06] MEDS: K and/or MAG REPLACEMENT MC SCH ×2 (08:00→20:00)
[2023-03-06] MEDS: NUT.TX.IMP.RENAL FXN,LAC-REDUC (Nepro) 237 ML VANILLA PO SCH ×3 (08:00→18:00)
[2023-03-06 08:01] LABS: BASOPHILS # (AUTO) 0.1 X10'3 (0-0.2); BASOPHILS % (AUTO) 0.5 % (0-1); EOSINOPHILS # (AUTO) 0.1 X10'3 (0-0.9); EOSINOPHILS % (AUTO) 0.7 % (0-6); HEMATOCRIT 33.3 % (35.0-45.0); HEMOGLOBIN 10.2 g/dl (12.0-16.0); LYMPHOCYTES # (AUTO) 0.7 X10'3 (1.1-4.8); LYMPHOCYTES % (AUTO) 6.3 % (21-51); MEAN CORPUSCULAR HEMOGLOBIN 29.7 PG (27.0-31.0); MEAN CORPUSCULAR HGB CONC 30.7 g/dL (33.0-36.5); MEAN CORPUSCULAR VOLUME 96.9 FL (78-98); MEAN PLATELET VOLUME 9.3 FL (7.4-10.4); MONOCYTES # (AUTO) 1.1 X10'3 (0-0.9); MONOCYTES % (AUTO) 9.7 % (2-12); NEUTROPHILS # (AUTO) 9.1 X10'3 (1.8-7.7); NEUTROPHILS % (AUTO) 82.8 % (42-75); PLATELET COUNT 224 X10'3 (140-440); RED BLOOD COUNT 3.44 X10'6 (4.20-5.60); RED CELL DISTRIBUTION WIDTH 16.4 % (11.5-14.5)
[2023-03-06 08:18] LABS: ALANINE AMINOTRANSFERASE 98 U/L (12-78); ALBUMIN/GLOBULIN RATIO 0.6 (1.1-1.5); ALKALINE PHOSPHATASE 85 IU/L (46-116); ANION GAP 8 (8-16); ASPARTATE AMINO TRANSFERASE 20 U/L (10-37); BILIRUBIN,TOTAL 0.9 MG/DL (0.1-1.0); BLOOD UREA NITROGEN 98 MG/DL (7-18); BUN/CREATININE RATIO 37.1 (10.0-20.0); CALCIUM 8.2 MG/DL (8.5-10.1); CHLORIDE 107 MMOL/L (99-107); CREATININE 2.64 MG/DL (0.40-0.90); GLUCOSE 211 MG/DL (70-104); MAGNESIUM 1.1 MG/DL (1.5-2.4); PHOSPHORUS 3.9 MG/DL (2.3-4.5); POTASSIUM 4.7 MMOL/L (3.5-5.1); SODIUM 144 MMOL/L (135-145); TOTAL CARBON DIOXIDE 28.6 MMOL/L (24-32); TOTAL PROTEIN 5.5 G/DL (6.4-8.2); eCRCL 18 ML/MIN; eGFR 17 ML/MIN
[2023-03-06] MEDS: EMPAGLIFLOZIN 10 MG TABLET PO SCH (08:57)
[2023-03-06] MEDS: metoprolol succinate 25mg (24-HOUR) SR. Tablet PO SCH (08:57)
[2023-03-06] MEDS: furosemide 40mg/4ml inj IV SCH ×2 (08:57→21:37)
[2023-03-06] MEDS: aspirin 81mg, enteric-coated 1 TAB TABLET.DR PO SCH (08:57)
[2023-03-06] MEDS: nystatin 15 GM powder TP SCH ×2 (08:58→20:00)
[2023-03-06] MEDS: CefTRIAXone/D5W-Rocephin 1gm 50 ML IV SCH (08:58)
[2023-03-06] MEDS: clopidogrel 75mg tablet PO SCH (08:58)
[2023-03-06] MEDS ORDERED: digoxin 250mcg (0.25mg) tablet PO ONE (09:00)
[2023-03-06] MEDS: pantoprazole 40mg Tablet.DR PO SCH (09:01)
--- NOTE | 2023-03-06 09:14 | NUR ---
0800 svn not given. therapist not available
--- NOTE | 2023-03-06 09:33 | NUR ---
refusing insulin at this time
[2023-03-06] MEDS: insulin Lispro (HumaLOG) vial - multi-dose SQ SCH ×2 (13:26→19:12)
[2023-03-06] MEDS: amiodarone 200mg tablet PO SCH (15:17)
--- NOTE | 2023-03-06 18:09 | NUR ---
Problems reprioritized. Patient report given, questions answered & plan of care reviewed with Jacki. Addendum: 03/06/23 at 1810 by Jakub Orta RN Amended: Links added.
[2023-03-06] MEDS: insulin glargine (Lantus) pen - multi-dose SQ SCH (21:40)
[2023-03-06] MEDS: atorvastatin 20mg tablet PO SCH (21:42)
[2023-03-07] VITALS (9 sets, daily range): BP systolic 115–146; BP diastolic 40–63; PULSE 72–90; RESP 14–22; TEMP 97.2–98.2; O2SAT 92–98
--- NOTE | 2023-03-07 05:00 | NUR ---
Student documentation: I have reviewed and agree with assessment performed and documented by CAMACHO Thomas
--- NOTE | 2023-03-07 06:30 | NUR ---
Patient in room PCU 3011. I have received report from Rosalva HERNANDEZ and had the opportunity to ask questions and assume patient care.
[2023-03-07 06:42] LABS: BASOPHILS # (AUTO) 0.1 X10'3 (0-0.2); BASOPHILS % (AUTO) 0.7 % (0-1); EOSINOPHILS # (AUTO) 0.2 X10'3 (0-0.9); EOSINOPHILS % (AUTO) 2.3 % (0-6); HEMATOCRIT 32.3 % (35.0-45.0); HEMOGLOBIN 10.1 g/dl (12.0-16.0); LYMPHOCYTES # (AUTO) 0.8 X10'3 (1.1-4.8); LYMPHOCYTES % (AUTO) 8.8 % (21-51); MEAN CORPUSCULAR HEMOGLOBIN 29.7 PG (27.0-31.0); MEAN CORPUSCULAR HGB CONC 31.3 g/dL (33.0-36.5); MONOCYTES # (AUTO) 0.9 X10'3 (0-0.9); MONOCYTES % (AUTO) 9.7 % (2-12); NEUTROPHILS # (AUTO) 7.2 X10'3 (1.8-7.7); NEUTROPHILS % (AUTO) 78.5 % (42-75); PLATELET COUNT 234 X10'3 (140-440); RED CELL DISTRIBUTION WIDTH 15.7 % (11.5-14.5); WHITE BLOOD COUNT 9.1 X10'3 (4.5-11.0)
[2023-03-07 07:04] LABS: ALANINE AMINOTRANSFERASE 79 U/L (12-78); ALBUMIN/GLOBULIN RATIO 0.6 (1.1-1.5); ALKALINE PHOSPHATASE 86 IU/L (46-116); ANION GAP 7 (8-16); ASPARTATE AMINO TRANSFERASE 23 U/L (10-37); BILIRUBIN,TOTAL 0.8 MG/DL (0.1-1.0); BLOOD UREA NITROGEN 93 MG/DL (7-18); BUN/CREATININE RATIO 37.3 (10.0-20.0); CALCIUM 8.3 MG/DL (8.5-10.1); CHLORIDE 107 MMOL/L (99-107); CREATININE 2.49 MG/DL (0.40-0.90); GLUCOSE 137 MG/DL (70-104); MAGNESIUM 1.1 MG/DL (1.5-2.4); PHOSPHORUS 3.6 MG/DL (2.3-4.5); POTASSIUM 4.4 MMOL/L (3.5-5.1); SODIUM 143 MMOL/L (135-145); TOTAL CARBON DIOXIDE 29.4 MMOL/L (24-32); TOTAL PROTEIN 5.5 G/DL (6.4-8.2); eCRCL 19 ML/MIN; eGFR 19 ML/MIN
[2023-03-07] MEDS: K and/or MAG REPLACEMENT MC SCH ×2 (08:00→20:00)
[2023-03-07] MEDS: ipratropium/albuterol 3ml nebule NEB SCH ×4 (08:44→21:00)
[2023-03-07] MEDS: pantoprazole 40mg Tablet.DR PO SCH (08:52)
[2023-03-07] MEDS: NUT.TX.IMP.RENAL FXN,LAC-REDUC (Nepro) 237 ML VANILLA PO SCH ×3 (08:53→18:01)
[2023-03-07] MEDS: metoprolol succinate 25mg (24-HOUR) SR. Tablet PO SCH (08:53)
[2023-03-07] MEDS: clopidogrel 75mg tablet PO SCH (08:53)
[2023-03-07] MEDS: aspirin 81mg, enteric-coated 1 TAB TABLET.DR PO SCH (08:53)
[2023-03-07] MEDS: nystatin 15 GM powder TP SCH ×2 (08:53→20:01)
[2023-03-07] MEDS: amiodarone 200mg tablet PO SCH (08:53)
[2023-03-07] MEDS: EMPAGLIFLOZIN 10 MG TABLET PO SCH (08:53)
[2023-03-07] MEDS: levoTHYROXINE 125mcg tablet PO SCH (08:53)
[2023-03-07] MEDS: insulin Lispro (HumaLOG) vial - multi-dose SQ SCH (09:10)
[2023-03-07] MEDS: CefTRIAXone/D5W-Rocephin 1gm 50 ML IV SCH (10:54)
[2023-03-07] MEDS: furosemide 40mg/4ml inj IV SCH ×2 (10:54→20:00)
[2023-03-07] MEDS: morphine 2 MG/ML inj. syringe IV PRN (12:06)
[2023-03-07] MEDS ORDERED: ondansetron 4mg rapidly disintigrating tab PO PRN (12:15)
--- NOTE | 2023-03-07 13:14 | NUR ---
PAGER ID: [phone] MESSAGE: [phone] Patient is still complaining of a lot of pain she received 2 mg of Morphine a hour ago. She describes it like severe gas pain. Can we get something else to help? Thank you Ryann HERNANDEZ [phone]
--- NOTE | 2023-03-07 13:30 | NUR ---
Patient refused humalog administration.
[2023-03-07] MEDS: magnesium Cl slow-release 64mg tablet PO PRN ×2 (13:40→20:00)
--- NOTE | 2023-03-07 17:00 | NUR ---
I agree with PURE PAK MACHINE OPERATOR documentation.
--- NOTE | 2023-03-07 18:36 | NUR ---
Problems reprioritized. Patient report given, questions answered & plan of care reviewed with Tony GLYNN.
--- NOTE | 2023-03-07 19:00 | NUR ---
PT IS ON LEVEL 4 OF DIABETIC PROTOCOL. BLOOD SUGAR = 127 AND PATIENT DOES NOT WANT TO EAT AND DOES NOT REQUIRE COVERAGE FOR CORRECTIONAL INSULIN.
[2023-03-07] MEDS: insulin glargine (Lantus) pen - multi-dose SQ SCH (21:31)
[2023-03-07] MEDS: atorvastatin 20mg tablet PO SCH (21:32)
[2023-03-08] VITALS (10 sets, daily range): BP systolic 98–112; BP diastolic 39–64; PULSE 68–85; RESP 15–20; TEMP 97.4–98.2; O2SAT 93–100
--- NOTE | 2023-03-08 06:30 | NUR ---
Problems reprioritized. Patient report given, questions answered & plan of care reviewed with KAYLYNN. Addendum: 03/08/23 at 0649 by Aramis Smyth RN Amended: Links added.
--- NOTE | 2023-03-08 06:38 | NUR ---
Patient in room PCU 3020. I have received report from Tony GLYNN and had the opportunity to ask questions and assume patient care.
[2023-03-08 06:53] LABS: BASOPHILS # (AUTO) 0.1 X10'3 (0-0.2); BASOPHILS % (AUTO) 0.4 % (0-1); EOSINOPHILS # (AUTO) 0.1 X10'3 (0-0.9); EOSINOPHILS % (AUTO) 0.3 % (0-6); HEMATOCRIT 31.7 % (35.0-45.0); HEMOGLOBIN 9.6 g/dl (12.0-16.0); LYMPHOCYTES # (AUTO) 1.1 X10'3 (1.1-4.8); LYMPHOCYTES % (AUTO) 5.8 % (21-51); MEAN CORPUSCULAR HEMOGLOBIN 29.3 PG (27.0-31.0); MEAN CORPUSCULAR HGB CONC 30.4 g/dL (33.0-36.5); MEAN CORPUSCULAR VOLUME 96.2 FL (78-98); MEAN PLATELET VOLUME 9.2 FL (7.4-10.4); MONOCYTES # (AUTO) 1.2 X10'3 (0-0.9); MONOCYTES % (AUTO) 6.2 % (2-12); NEUTROPHILS # (AUTO) 16.6 X10'3 (1.8-7.7); NEUTROPHILS % (AUTO) 87.3 % (42-75); PLATELET COUNT 245 X10'3 (140-440); RED BLOOD COUNT 3.29 X10'6 (4.20-5.60); RED CELL DISTRIBUTION WIDTH 15.9 % (11.5-14.5)
[2023-03-08 07:04] LABS: ALANINE AMINOTRANSFERASE 58 U/L (12-78); ALBUMIN 1.8 G/DL (3.4-5.0); ALBUMIN/GLOBULIN RATIO 0.5 (1.1-1.5); ALKALINE PHOSPHATASE 77 IU/L (46-116); ANION GAP 9 (8-16); ASPARTATE AMINO TRANSFERASE 25 U/L (10-37); BILIRUBIN,TOTAL 0.6 MG/DL (0.1-1.0); BLOOD UREA NITROGEN 79 MG/DL (7-18); BUN/CREATININE RATIO 31.3 (10.0-20.0); CALCIUM 7.8 MG/DL (8.5-10.1); CHLORIDE 106 MMOL/L (99-107); CREATININE 2.52 MG/DL (0.40-0.90); GLUCOSE 152 MG/DL (70-104); PHOSPHORUS 3.9 MG/DL (2.3-4.5); POTASSIUM 4.2 MMOL/L (3.5-5.1); SODIUM 147 MMOL/L (135-145); TOTAL CARBON DIOXIDE 32.2 MMOL/L (24-32); TOTAL PROTEIN 5.1 G/DL (6.4-8.2); eCRCL 19 ML/MIN; eGFR 18 ML/MIN
--- NOTE | 2023-03-08 07:21 | NUR ---
Called Dr Heller about critical Mag of 1.0 will replace per protocol. No new orders at this time.
[2023-03-08] MEDS: EMPAGLIFLOZIN 10 MG TABLET PO SCH (07:46)
[2023-03-08] MEDS: magnesium Cl slow-release 64mg tablet PO PRN ×2 (07:46→20:14)
[2023-03-08] MEDS: amiodarone 200mg tablet PO SCH (07:46)
[2023-03-08] MEDS: aspirin 81mg, enteric-coated 1 TAB TABLET.DR PO SCH (07:46)
[2023-03-08] MEDS: nystatin 15 GM powder TP SCH ×2 (07:46→20:16)
[2023-03-08] MEDS: levoTHYROXINE 125mcg tablet PO SCH (07:46)
[2023-03-08] MEDS: clopidogrel 75mg tablet PO SCH (07:46)
[2023-03-08] MEDS: pantoprazole 40mg Tablet.DR PO SCH (07:46)
[2023-03-08] MEDS: metoprolol succinate 25mg (24-HOUR) SR. Tablet PO SCH (07:46)
[2023-03-08] MEDS: NUT.TX.IMP.RENAL FXN,LAC-REDUC (Nepro) 237 ML VANILLA PO SCH ×3 (07:46→18:02)
[2023-03-08] MEDS: K and/or MAG REPLACEMENT MC SCH ×2 (07:46→20:00)
[2023-03-08] MEDS: ipratropium/albuterol 3ml nebule NEB SCH ×4 (09:15→20:52)
[2023-03-08] MEDS: CefTRIAXone/D5W-Rocephin 1gm 50 ML IV SCH (09:54)
[2023-03-08] MEDS: furosemide 40mg/4ml inj IV SCH ×2 (09:54→20:00)
[2023-03-08] MEDS: insulin Lispro (HumaLOG) vial - multi-dose SQ SCH ×2 (10:12→14:16)
--- NOTE | 2023-03-08 11:15 | NUR ---
I agree with CONFERENCE CENTER MANAGER documentation.
[2023-03-08] MEDS: morphine 2 MG/ML inj. syringe IV PRN (14:00)
[2023-03-08] MEDS ORDERED: magnesium 4gm in 100ml NS 100 ML IV PRN (16:20)
[2023-03-08] MEDS ORDERED: magnesium 2GM in 50ml NS 50 ML IV PRN (16:20)
--- NOTE | 2023-03-08 17:13 | NUR ---
Per verbal RN request, pt seen for ONS preferences. Pt currently receiving Nepro TIDWM states dislikes all flavors and all options including Enlive. Noticed [employer]life protein shake at bedside. Pt states preferences to them and stated daughter has been bringing them in, Encouraged pt to continue outside ONS. Pt request fruit TIDWM except bananas; communicated with dietary. Per EMR pt is no longer on comfort care measures. Recommendations; 1.continue carbohydrate controlled diet 2.discontinue ONS due to pt dislike and bringing Fairlife ONS from outside 3.honor food preferences such as fruit TIDWM except bananas Addendum: 03/08/23 at [address] Amended: Links added.
--- NOTE | 2023-03-08 18:22 | NUR ---
Problems reprioritized. Patient report given, questions answered & plan of care reviewed with Jonas HERNANDEZ.
[2023-03-08] MEDS: atorvastatin 20mg tablet PO SCH (20:15)
[2023-03-08] MEDS: insulin glargine (Lantus) pen - multi-dose SQ SCH (20:19)
--- NOTE | 2023-03-08 23:39 | NUR ---
I assessed the pt and agree with all assessment findings from Jonas HERNANDEZ.
[2023-03-09] VITALS (14 sets, daily range): BP systolic 96–115; BP diastolic 37–52; PULSE 60–87; RESP 13–20; TEMP 97.5–98.7; O2SAT 93–99
[2023-03-09] MEDS: morphine 2 MG/ML inj. syringe IV PRN (04:05)
--- NOTE | 2023-03-09 06:21 | NUR ---
Patient in room PCU 3014. I have received report from Jonas HERNANDEZ and had the opportunity to ask questions and assume patient care.
[2023-03-09] MEDS: NUT.TX.IMP.RENAL FXN,LAC-REDUC (Nepro) 237 ML VANILLA PO SCH ×3 (08:00→18:00)
[2023-03-09] MEDS: K and/or MAG REPLACEMENT MC SCH ×2 (08:00→19:45)
[2023-03-09] MEDS: aspirin 81mg, enteric-coated 1 TAB TABLET.DR PO SCH (08:18)
[2023-03-09] MEDS: nystatin 15 GM powder TP SCH ×2 (08:18→19:45)
[2023-03-09] MEDS: amiodarone 200mg tablet PO SCH (08:18)
[2023-03-09] MEDS: EMPAGLIFLOZIN 10 MG TABLET PO SCH (08:18)
[2023-03-09] MEDS: metoprolol succinate 25mg (24-HOUR) SR. Tablet PO SCH (08:18)
[2023-03-09] MEDS: levoTHYROXINE 125mcg tablet PO SCH (08:18)
[2023-03-09] MEDS: clopidogrel 75mg tablet PO SCH (08:18)
[2023-03-09] MEDS: pantoprazole 40mg Tablet.DR PO SCH (08:18)
[2023-03-09] MEDS: ipratropium/albuterol 3ml nebule NEB SCH ×4 (08:40→20:56)
[2023-03-09] MEDS: insulin Lispro (HumaLOG) vial - multi-dose SQ SCH ×2 (09:13→19:42)
[2023-03-09 09:16] LABS: BASOPHILS # (AUTO) 0.1 X10'3 (0-0.2); BASOPHILS % (AUTO) 0.6 % (0-1); EOSINOPHILS # (AUTO) 0.2 X10'3 (0-0.9); EOSINOPHILS % (AUTO) 1.3 % (0-6); HEMATOCRIT 31.9 % (35.0-45.0); HEMOGLOBIN 9.8 g/dl (12.0-16.0); LYMPHOCYTES % (AUTO) 8.1 % (21-51); MEAN CORPUSCULAR HEMOGLOBIN 29.4 PG (27.0-31.0); MEAN CORPUSCULAR HGB CONC 30.7 g/dL (33.0-36.5); MEAN CORPUSCULAR VOLUME 95.8 FL (78-98); MEAN PLATELET VOLUME 9.1 FL (7.4-10.4); MONOCYTES # (AUTO) 0.8 X10'3 (0-0.9); MONOCYTES % (AUTO) 6.4 % (2-12); NEUTROPHILS # (AUTO) 10.4 X10'3 (1.8-7.7); NEUTROPHILS % (AUTO) 83.6 % (42-75); PLATELET COUNT 242 X10'3 (140-440); RED BLOOD COUNT 3.33 X10'6 (4.20-5.60); RED CELL DISTRIBUTION WIDTH 15.8 % (11.5-14.5); WHITE BLOOD COUNT 12.5 X10'3 (4.5-11.0)
[2023-03-09] MEDS: furosemide 40mg/4ml inj IV SCH ×2 (09:18→20:41)
[2023-03-09] MEDS: CefTRIAXone/D5W-Rocephin 1gm 50 ML IV SCH (09:18)
[2023-03-09 10:19] LABS: ALANINE AMINOTRANSFERASE 50 U/L (12-78); ALBUMIN 1.8 G/DL (3.4-5.0); ALBUMIN/GLOBULIN RATIO 0.5 (1.1-1.5); ALKALINE PHOSPHATASE 80 IU/L (46-116); ANION GAP 8 (8-16); ASPARTATE AMINO TRANSFERASE 21 U/L (10-37); BILIRUBIN,TOTAL 0.5 MG/DL (0.1-1.0); BLOOD UREA NITROGEN 78 MG/DL (7-18); BUN/CREATININE RATIO 30.4 (10.0-20.0); CALCIUM 7.5 MG/DL (8.5-10.1); CHLORIDE 105 MMOL/L (99-107); CREATININE 2.57 MG/DL (0.40-0.90); GLUCOSE 212 MG/DL (70-104); PHOSPHORUS 3.1 MG/DL (2.3-4.5); POTASSIUM 3.7 MMOL/L (3.5-5.1); PRO BRAIN NATRIURETIC PEPTIDE 11194 PG/ML (0-450); SODIUM 144 MMOL/L (135-145); TOTAL CARBON DIOXIDE 31.1 MMOL/L (24-32); TOTAL PROTEIN 5.1 G/DL (6.4-8.2); eCRCL 18 ML/MIN; eGFR 18 ML/MIN
--- NOTE | 2023-03-09 10:37 | NUR ---
Called Critical mag 1.[address] Heller
[2023-03-09] MEDS: magnesium Cl slow-release 64mg tablet PO PRN ×2 (10:45→19:45)
--- NOTE | 2023-03-09 14:00 | NUR ---
Patient refused 1 unit of insulin to cover BG
--- NOTE | 2023-03-09 14:06 | NUR ---
Spoke with resident Dr Heller about patient's urinary symptoms. Patient isn't complaining of burning or discomfort. gave order to stop Rocephin.
[2023-03-09] MEDS ORDERED: magnesium 2GM in 50ml NS 50 ML IV ONE (16:40)
--- NOTE | 2023-03-09 18:22 | NUR ---
Initial: Pt DX moderate pericardial effusion,heart failure, hypomagnesemia, left sided pleural effusion, NIK on CKD and UTI per EMR. Pt prior on comfort care though now DNR status per EMR. Pt continues on carbohydrate controlled diet with fluctuating intake ~26% x 16 meals. Pt continues receiving Nepro though mostly refusing them since 03/01 per EMR. PO intake alone met ~29% of estimated kcal needs and ~38% of protein needs though likely higher due to drinking outside [facility]. Pt seen yesterday by RAUL for food preferences. LBM on 03/08 per EMR. Will continue to follow and make recommendations as appropriate. Recommendations; 1.continue carbohydrate controlled diet 2.discontinue ONS due to pt dislike and bringing [facility] from outside 3.honor food preferences such as fruit TIDWM except bananas 4.routine bowel care 5.weekly scaled wt Addendum: 03/09/23 at [address] Amended: Links added.
[2023-03-09] MEDS: atorvastatin 20mg tablet PO SCH (19:45)
[2023-03-09] MEDS: insulin glargine (Lantus) pen - multi-dose SQ SCH (20:26)
[2023-03-10] VITALS (9 sets, daily range): BP systolic 105–130; BP diastolic 44–82; PULSE 69–81; RESP 13–21; TEMP 97.3–97.9; O2SAT 92–99
--- NOTE | 2023-03-10 00:13 | NUR ---
Problems reprioritized. Patient report given, questions answered & plan of care reviewed with Lisandra GLYNN.
--- NOTE | 2023-03-10 00:15 | NUR ---
Patient in room PCU 3020. I have received report from Ryann HERNANDEZ and had the opportunity to ask questions and assume patient care.
--- NOTE | 2023-03-10 00:45 | NUR ---
I have reviewed previous assessment and agree with findings. Patient is now using a wick for incontinence.
[2023-03-10] MEDS: morphine 2 MG/ML inj. syringe IV PRN ×2 (06:04→13:43)
--- NOTE | 2023-03-10 06:56 | NUR ---
Report given to Erika Vital and Rylee nursing home physician.
--- NOTE | 2023-03-10 07:08 | NUR ---
Patient in room PCU 3020. I have received report from Lisandra GLYNN and had the opportunity to ask questions and assume patient care.
[2023-03-10] MEDS: ipratropium/albuterol 3ml nebule NEB SCH ×4 (07:57→20:47)
[2023-03-10] MEDS: K and/or MAG REPLACEMENT MC SCH ×2 (08:00→20:00)
[2023-03-10] MEDS: NUT.TX.IMP.RENAL FXN,LAC-REDUC (Nepro) 237 ML VANILLA PO SCH ×3 (08:00→18:00)
[2023-03-10] MEDS: nystatin 15 GM powder TP SCH ×2 (08:00→21:41)
[2023-03-10] MEDS: EMPAGLIFLOZIN 10 MG TABLET PO SCH (09:20)
[2023-03-10] MEDS: aspirin 81mg, enteric-coated 1 TAB TABLET.DR PO SCH (09:20)
[2023-03-10] MEDS: furosemide 40mg/4ml inj IV SCH ×2 (09:20→19:33)
[2023-03-10] MEDS: amiodarone 200mg tablet PO SCH (09:20)
[2023-03-10] MEDS: clopidogrel 75mg tablet PO SCH (09:21)
[2023-03-10] MEDS: metoprolol succinate 25mg (24-HOUR) SR. Tablet PO SCH (09:21)
[2023-03-10] MEDS: pantoprazole 40mg Tablet.DR PO SCH (09:24)
[2023-03-10] MEDS: levoTHYROXINE 125mcg tablet PO SCH (09:29)
[2023-03-10] MEDS: insulin Lispro (HumaLOG) vial - multi-dose SQ SCH ×2 (09:55→13:36)
[2023-03-10 10:39] LABS: BASOPHILS # (AUTO) 0.1 X10'3 (0-0.2); BASOPHILS % (AUTO) 0.6 % (0-1); EOSINOPHILS # (AUTO) 0.1 X10'3 (0-0.9); EOSINOPHILS % (AUTO) 0.7 % (0-6); HEMOGLOBIN 9.8 g/dl (12.0-16.0); LYMPHOCYTES # (AUTO) 0.6 X10'3 (1.1-4.8); LYMPHOCYTES % (AUTO) 4.3 % (21-51); MEAN CORPUSCULAR HEMOGLOBIN 29.4 PG (27.0-31.0); MEAN CORPUSCULAR HGB CONC 30.7 g/dL (33.0-36.5); MEAN CORPUSCULAR VOLUME 95.8 FL (78-98); MEAN PLATELET VOLUME 9.1 FL (7.4-10.4); MONOCYTES # (AUTO) 0.9 X10'3 (0-0.9); MONOCYTES % (AUTO) 6.5 % (2-12); NEUTROPHILS % (AUTO) 87.9 % (42-75); PLATELET COUNT 219 X10'3 (140-440); RED BLOOD COUNT 3.34 X10'6 (4.20-5.60); RED CELL DISTRIBUTION WIDTH 15.9 % (11.5-14.5); WHITE BLOOD COUNT 13.7 X10'3 (4.5-11.0)
[2023-03-10 11:02] LABS: ALANINE AMINOTRANSFERASE 48 U/L (12-78); ALBUMIN 1.9 G/DL (3.4-5.0); ALBUMIN/GLOBULIN RATIO 0.5 (1.1-1.5); ALKALINE PHOSPHATASE 92 IU/L (46-116); ANION GAP 7 (8-16); ASPARTATE AMINO TRANSFERASE 26 U/L (10-37); BILIRUBIN,TOTAL 0.6 MG/DL (0.1-1.0); BLOOD UREA NITROGEN 69 MG/DL (7-18); BUN/CREATININE RATIO 27.8 (10.0-20.0); CALCIUM 7.5 MG/DL (8.5-10.1); CHLORIDE 102 MMOL/L (99-107); CREATININE 2.48 MG/DL (0.40-0.90); GLUCOSE 264 MG/DL (70-104); PHOSPHORUS 2.5 MG/DL (2.3-4.5); POTASSIUM 3.8 MMOL/L (3.5-5.1); SODIUM 142 MMOL/L (135-145); TOTAL CARBON DIOXIDE 33.1 MMOL/L (24-32); TOTAL PROTEIN 5.4 G/DL (6.4-8.2); eCRCL 19 ML/MIN; eGFR 19 ML/MIN
--- NOTE | 2023-03-10 13:35 | NUR ---
Pt. refused 1300 SVN. She is very fatigued from sitting up in chair. No resp distress observed
--- NOTE | 2023-03-10 16:57 | NUR ---
pt refused 1700 SVN. No resp, distress observed
--- NOTE | 2023-03-10 18:27 | NUR ---
Patient in room PCU 3020. I have received report from GRETTA James and had the opportunity to ask questions and assume patient care.
--- NOTE | 2023-03-10 18:45 | NUR ---
patient confused at times, seen by Dr Hernandez and Dr fitch. [facility]. case folder involved. All cares given. Report given to Mitzy GLYNN
--- NOTE | 2023-03-10 19:28 | NUR ---
Patient did not eat and BG was 85. No humalog coverage per protocol.
[2023-03-10] MEDS: atorvastatin 20mg tablet PO SCH (21:35)
[2023-03-10] MEDS: insulin glargine (Lantus) pen - multi-dose SQ SCH (21:37)
[2023-03-11] VITALS (8 sets, daily range): BP systolic 134–144; BP diastolic 82–89; PULSE 69–80; RESP 16–21; TEMP 97–97.6; O2SAT 93–99
--- NOTE | 2023-03-11 06:31 | NUR ---
Problems reprioritized. Patient report given, questions answered & plan of care reviewed with GRETTA James.
--- NOTE | 2023-03-11 06:48 | NUR ---
Patient in room PCU 3020. I have received report from Mitzy GLYNN and had the opportunity to ask questions and assume patient care.
[2023-03-11] MEDS: ipratropium/albuterol 3ml nebule NEB SCH (07:50)
[2023-03-11] MEDS: K and/or MAG REPLACEMENT MC SCH (08:00)
[2023-03-11] MEDS: furosemide 40mg/4ml inj IV SCH (08:12)
[2023-03-11] MEDS: pantoprazole 40mg Tablet.DR PO SCH (08:13)
[2023-03-11] MEDS: levoTHYROXINE 125mcg tablet PO SCH (08:13)
[2023-03-11] MEDS: amiodarone 200mg tablet PO SCH (08:13)
[2023-03-11] MEDS: clopidogrel 75mg tablet PO SCH (08:13)
[2023-03-11] MEDS: EMPAGLIFLOZIN 10 MG TABLET PO SCH (08:13)
[2023-03-11] MEDS: morphine 2 MG/ML inj. syringe IV PRN (08:14)
[2023-03-11] MEDS: nystatin 15 GM powder TP SCH (08:14)
[2023-03-11] MEDS: metoprolol succinate 25mg (24-HOUR) SR. Tablet PO SCH (08:14)
[2023-03-11] MEDS: NUT.TX.IMP.RENAL FXN,LAC-REDUC (Nepro) 237 ML VANILLA PO SCH (08:24)
[2023-03-11] MEDS: aspirin 81mg, enteric-coated 1 TAB TABLET.DR PO SCH (09:16)
[2023-03-11 09:22] LABS: BASOPHILS # (AUTO) 0.1 X10'3 (0-0.2); BASOPHILS % (AUTO) 0.9 % (0-1); EOSINOPHILS # (AUTO) 0.1 X10'3 (0-0.9); EOSINOPHILS % (AUTO) 1.1 % (0-6); HEMATOCRIT 31.8 % (35.0-45.0); HEMOGLOBIN 9.8 g/dl (12.0-16.0); LYMPHOCYTES % (AUTO) 7.6 % (21-51); MEAN CORPUSCULAR HEMOGLOBIN 29.6 PG (27.0-31.0); MEAN CORPUSCULAR VOLUME 95.5 FL (78-98); MEAN PLATELET VOLUME 9.3 FL (7.4-10.4); NEUTROPHILS # (AUTO) 10.6 X10'3 (1.8-7.7); NEUTROPHILS % (AUTO) 82.4 % (42-75); PLATELET COUNT 209 X10'3 (140-440); RED BLOOD COUNT 3.32 X10'6 (4.20-5.60); RED CELL DISTRIBUTION WIDTH 16.2 % (11.5-14.5); WHITE BLOOD COUNT 12.9 X10'3 (4.5-11.0)
[2023-03-11] MEDS: insulin Lispro (HumaLOG) vial - multi-dose SQ SCH (09:29)
[2023-03-11 09:39] LABS: ALANINE AMINOTRANSFERASE 41 U/L (12-78); ALBUMIN/GLOBULIN RATIO 0.6 (1.1-1.5); ALKALINE PHOSPHATASE 85 IU/L (46-116); ANION GAP 5 (8-16); ASPARTATE AMINO TRANSFERASE 25 U/L (10-37); BILIRUBIN,TOTAL 0.7 MG/DL (0.1-1.0); BLOOD UREA NITROGEN 62 MG/DL (7-18); BUN/CREATININE RATIO 27.7 (10.0-20.0); CALCIUM 7.7 MG/DL (8.5-10.1); CHLORIDE 102 MMOL/L (99-107); CREATININE 2.24 MG/DL (0.40-0.90); GLUCOSE 125 MG/DL (70-104); MAGNESIUM 1.3 MG/DL (1.5-2.4); PHOSPHORUS 2.3 MG/DL (2.3-4.5); POTASSIUM 3.3 MMOL/L (3.5-5.1); SODIUM 141 MMOL/L (135-145); TOTAL CARBON DIOXIDE 33.8 MMOL/L (24-32); TOTAL PROTEIN 5.5 G/DL (6.4-8.2); eCRCL 21 ML/MIN; eGFR 21 ML/MIN
[2023-03-11] MEDS ORDERED: potassium Cl 20 mEq SR tablet PO STA (11:55)
--- NOTE | 2023-03-11 12:43 | NUR ---
Patient seen by Dr fitch, is for discharge to [facility]. Report called to Stephanie HERNANDEZ. Patient transferred via [facility] with [facility] person in stable condition
--- NOTE | 2023-03-11 13:04 | NUR ---
Tele went to [facility]. Talked with nisha HERNANDEZ who will try to send it back with [facility]
== END 2023-03-11 13:38 | DRG 640 ==
LOC: ER 15:03 → ED HOLD 18:50 → PCU 3S 02-25 07:21
PROVIDERS: ADMIT Internal Medicine Critical Care Medicine; ATTEND Family Medicine
PROC: 5A09357 Assistance with Respiratory Ventilation, Less than 24 Consecutive Hours, Continuous Positive Airway Pressure (ICD-10-PCS; 2023-02-24)
PROC: 0W9B30Z Drainage of Left Pleural Cavity with Drainage Device, Percutaneous Approach (ICD-10-PCS; principal; 2023-02-25)
DX: E87.5 Hyperkalemia (principal); I50.33 Acute on chronic diastolic (congestive) heart failure; N17.0 Acute kidney failure with tubular necrosis; I13.0 Hypertensive heart and chronic kidney disease with heart failure and stage 1 through stage 4 chronic kidney disease, or unspecified chronic kidney disease; E44.0 Moderate protein-calorie malnutrition; I31.39 Other pericardial effusion (noninflammatory); N39.0 Urinary tract infection, site not specified; J90 Pleural effusion, not elsewhere classified; E87.20 Acidosis, unspecified; Z66 Do not resuscitate; N18.30 Chronic kidney disease, stage 3 unspecified; Z68.29 Body mass index [BMI] 29.0-29.9, adult; I48.0 Paroxysmal atrial fibrillation; E03.9 Hypothyroidism, unspecified; D50.9 Iron deficiency anemia, unspecified; E83.42 Hypomagnesemia; E11.22 Type 2 diabetes mellitus with diabetic chronic kidney disease; E78.00 Pure hypercholesterolemia, unspecified; I25.10 Atherosclerotic heart disease of native coronary artery without angina pectoris; I25.2 Old myocardial infarction; Z86.73 Personal history of transient ischemic attack (TIA), and cerebral infarction without residual deficits; Z95.5 Presence of coronary angioplasty implant and graft
CPT/HCPCS: 32555; 36415; 71045; 76770; 80048; 80053; 80061; 81001; 82945; 82948; 83036; 83605; 83615; 83735; 83880; 83930; 83986; 84100; 84132; 84145; 84157; 84439; 84443; 84484; 85025; 85651; 87040; 87070; 87077; 87088; 87186; 89051; 93005; 93308; 94640; 94760; 96374; 96375; 97161; 97530; 99291; A4314; A4620; A6212; A6213; A6250; A6449; C1758; G0378; J0610; J0696; J1644; J1815; J1940; J2060; J2270; J2405; J3475; J3490; J7030; J7040; J7070